=== PATIENT | female | born 1940 | race Caucasian/White ===

== ENCOUNTER 2018-05-13 15:14 | Inpatient (IN) ==
[2018-05-13 16:31] LABS: Basophils % 0.2 % (0.0-0.8); Eosinophils % 0.2 % (0.00-10.9); Hematocrit 33.3 VOL% (35.7-47.0); Hemoglobin 10.6 GM/DL (12.0-16.0); Immature Granulocytes Absolute 0.19 #; Lymphocytes # 0.9 10*3/uL (1.4-4.0); Lymphocytes % 4.6 % (21.3-54.2); Mean Corpuscular HGB Conc 31.8 GM/DL (32-36); Mean Corpuscular Hemoglobin 26 PG (27-34); Mean Corpuscular Volume 80.2 FL (87-102); Mean Platelet Volume 9.5 FL (9.6-12.0); Monocytes # 1.5 10*3/uL (0.11-0.8); Monocytes % 7.8 % (1.7-12.7); Neutrophils # 16.7 10*3/uL (1.4-7.4); Neutrophils % 86.2 % (38.7-73.9); Platelet Count 382 T/CUMM (130-400); Red Blood Count 4.15 MC/CUMM (3.8-5.5); Red Cell Distribution Width 17.1 % (9.3-17.3); White Blood Count 19.3 T/CUMM (4-12)
[2018-05-13 16:38] LABS: INR 1.1; PT Patient Result 12.3 SECS
[2018-05-13 16:48] LABS: Apearance,Urine Slightly Hazy (Clear); Bilirubin,Urine Negative (Negative); Blood, Urine Negative (Negative); Glucose,Urine (UA) Negative (Negative); Hyaline Casts,Urine 9 /LPF (0-3); Ketones,Urine Negative (Negative); Mucus,Urine Occasional /LPF (Occasional); Nitrite,Urine Negative (Negative); Protein,Urine Negative; RBC,Urine <1 /HPF (0-4); Squamous Epithelial Cell,Urine Occasional /HPF (0-10); Urine Color Yellow (Yellow); Urine Specific Gravity 1.009 (1.001-1.035); Urine Urobilinogen < 2.0 EU/DL (0.2-1.0); WBC,Urine 3 /HPF (0-6)
[2018-05-13 16:53] LABS: Lymphocytes 1 % (20-55); Segmented Neutrophils 94 % (50-85); Total Cells Counted 100
[2018-05-13 16:54] LABS: Burr Cells Few; Elliptocytes Few; Schistocytes Few
[2018-05-13 16:55] LABS: Platelet Estimate Adequate
[2018-05-13 17:33] LABS: Sedimentation Rate-Westergren 66 MM/HR (0-30)
[2018-05-13] MEDS ORDERED: ALBUTEROL/IPRATROPIUM 3 ML NEB RESP TX STA (18:22)
[2018-05-13] MEDS ORDERED: FUROSEMIDE 40 MG/4 ML VIAL IV STA (18:22)
[2018-05-13 18:39] LABS: Alanine Aminotransferase 40 U/L (13-56); Albumin 2.9 G/DL (3.4-5.0); Alkaline Phosphatase 65 U/L (45-117); Amylase 35 U/L (25-115); Aspartate Amino Transferase 47 U/L (0-37); Blood Urea Nitrogen 18 MG/DL (7-18); Calcium 8.3 MG/DL (8.5-10.1); Free T4 (Free Thyroxine) 1.24 NG/DL (0.76-1.46); Glucose 119 MG/DL (74-106); Osmolality,Calculated 264.7 MOS/KG (273-304); Potassium 4.5 MMOL/L (3.5-5.1); Sodium 131 MMOL/L (136-145); Total Protein 7.1 G/DL (6.4-8.3)
[2018-05-13 18:40] LABS: Troponin I 0.075 NG/ML (0.00-0.045)
[2018-05-13 18:51] LABS: Rheumatoid Factor 18 IU/ML (<15)
[2018-05-13] MEDS ORDERED: LEVOFLOXACIN INJ 750 MG in PREMIX 1 EACH IV STA (19:19)
[2018-05-13] MEDS ORDERED: ZALEPLON 5 MG CAPSULE PO PRN (20:03)
[2018-05-13] MEDS ORDERED: ONDANSETRON 4 MG/2 ML VIAL IV PRN (20:03)
[2018-05-13] MEDS ORDERED: ACETAMINOPHEN 325 MG TABLET PO PRN (20:03)
[2018-05-13] MEDS ORDERED: guaiFENesin/DM ER 600-30 MG TABLET PO PRN (20:03)
[2018-05-13] MEDS ORDERED: DOCUSATE SODIUM 100 MG CAPSULE PO PRN (20:03)
[2018-05-13] MEDS ORDERED: LOSARTAN 50 MG TABLET PO PRN (20:10)
[2018-05-13] MEDS ORDERED: ENOXAPARIN 40 MG/0.4 ML SYRINGE SUBCUT SCH (20:30)
[2018-05-13] MEDS ORDERED: NON-FORMULARY MEDICATION (Fluticasone Propionate [Flovent 250 Mcg Diskus] 250 MCG) INH SCH (21:00)
[2018-05-13] MEDS: busPIRone 15 MG TABLET PO SCH (22:11)
[2018-05-13] MEDS: APIXABAN 5 MG TABLET PO SCH (22:12)
[2018-05-13] MEDS: FAMCICLOVIR 250 MG TABLET PO SCH (22:12)
[2018-05-13 22:30] LABS: Troponin I 0.088 NG/ML (0.00-0.045)
[2018-05-13] MEDS: PIPERACILLIN/TAZOBACTAM 3,375 MG in SODIUM CHLORIDE 0.9% 100 ML IV SCH (23:31)
[2018-05-13] MEDS: SODIUM CHLORIDE 0.45% 1,000 ML IV SCH (23:36)
[2018-05-14] MEDS: BUDESONIDE/FORMOTEROL 160-4.5 INHALER 6 GM INH SCH ×2 (00:28→08:36)
[2018-05-14 05:01] LABS: Basophils % 0.2 % (0.0-0.8); Eosinophils % 0.1 % (0.00-10.9); Hematocrit 27.9 VOL% (35.7-47.0); Hemoglobin 8.8 GM/DL (12.0-16.0); Immature Granulocytes Absolute 0.17 #; Lymphocytes # 1.2 10*3/uL (1.4-4.0); Mean Corpuscular HGB Conc 31.5 GM/DL (32-36); Mean Corpuscular Hemoglobin 25 PG (27-34); Mean Corpuscular Volume 78.4 FL (87-102); Mean Platelet Volume 9.9 FL (9.6-12.0); Monocytes # 1.3 10*3/uL (0.11-0.8); Monocytes % 7.7 % (1.7-12.7); Neutrophils # 14.5 10*3/uL (1.4-7.4); Platelet Count 330 T/CUMM (130-400); Red Blood Count 3.56 MC/CUMM (3.8-5.5); Red Cell Distribution Width 16.9 % (9.3-17.3); White Blood Count 17.2 T/CUMM (4-12)
[2018-05-14 05:06] LABS: Calcium 7.9 MG/DL (8.5-10.1); Osmolality,Calculated 270.2 MOS/KG (273-304)
[2018-05-14 05:08] LABS: Troponin I 0.107 NG/ML (0.00-0.045)
[2018-05-14] MEDS: ATORVASTATIN 40 MG TABLET PO SCH (08:30)
[2018-05-14] MEDS: ASPIRIN EC 81 MG TABLET PO SCH (08:31)
[2018-05-14] MEDS: AMIODARONE 200 MG TABLET PO SCH (08:31)
[2018-05-14] MEDS: APIXABAN 5 MG TABLET PO SCH ×2 (08:31→21:16)
[2018-05-14] MEDS: LEVOTHYROXINE 50 MCG TABLET PO SCH (08:31)
[2018-05-14] MEDS: busPIRone 15 MG TABLET PO SCH (08:32)
[2018-05-14] MEDS: FAMCICLOVIR 250 MG TABLET PO SCH ×2 (08:32→21:16)
[2018-05-14] MEDS: PANTOPRAZOLE 40 MG TABLET PO SCH (08:32)
[2018-05-14] MEDS: PIPERACILLIN/TAZOBACTAM 3,375 MG in SODIUM CHLORIDE 0.9% 100 ML IV SCH ×2 (08:33→16:54)
[2018-05-14] MEDS ORDERED: PANTOPRAZOLE 40 MG TABLET PO SCH (09:00)
[2018-05-14] MEDS ORDERED: FLUCONAZOLE 100 MG TABLET PO SCH (09:00)
[2018-05-14] MEDS ORDERED: predniSONE 5 MG TABLET PO SCH (09:00)
[2018-05-14] MEDS ORDERED: NON-FORMULARY MEDICATION (Omeprazole [Omeprazole] 20 MG) PO SCH (09:00)
[2018-05-14] MEDS ORDERED: MULTIVITAMIN (CENTRUM) TABLET PO SCH (09:00)
[2018-05-14] MEDS ORDERED: NON-FORMULARY MEDICATION (Garlic [Garlic] 1,000 MG) PO SCH (09:00)
[2018-05-14] MEDS ORDERED: EZETIMIBE 10 MG TABLET PO SCH (09:00)
[2018-05-14] MEDS ORDERED: amLODIPine 5 MG TABLET PO SCH (09:00)
[2018-05-14] MEDS: SODIUM CHLORIDE 0.45% 1,000 ML IV SCH (09:33)
[2018-05-14] MEDS ORDERED: guaiFENesin/DM ER 600-30 MG TABLET PO SCH (10:30)
[2018-05-14] MEDS: ALBUTEROL 2.5 MG/3 ML NEB RESP TX PRN (11:39)
[2018-05-14 11:40] LABS: ABG Base Excess 0.4 MMOL/L (-2.5-2.5); ABG HCO3 24.6 MMOL/L (20-26); ABG Oxygen Saturation 85.1 % (95-100); ABG TCO2 22.3 MMOL/L (23-27); Allen Test Positive
[2018-05-14] MEDS ORDERED: FUROSEMIDE 40 MG/4 ML VIAL IV ONE (11:57)
[2018-05-14 12:53] LABS: Troponin I 0.077 NG/ML (0.00-0.045)
[2018-05-14] MEDS: ALBUTEROL/IPRATROPIUM 3 ML NEB RESP TX SCH ×2 (14:30→19:53)
[2018-05-14] MEDS: FUROSEMIDE 40 MG/4 ML VIAL IV SCH (16:40)
[2018-05-14] MEDS: methylPREDNISolone SOD SUC 40 MG/1 ML VIAL IV SCH (16:54)
[2018-05-15] MEDS: methylPREDNISolone SOD SUC 40 MG/1 ML VIAL IV SCH ×3 (00:16→17:43)
[2018-05-15] MEDS: PIPERACILLIN/TAZOBACTAM 3,375 MG in SODIUM CHLORIDE 0.9% 100 ML IV SCH ×3 (00:34→17:43)
[2018-05-15] MEDS: ALBUTEROL/IPRATROPIUM 3 ML NEB RESP TX SCH ×7 (00:36→23:23)
[2018-05-15 03:45] LABS: Basophils % 0.1 % (0.0-0.8); Hematocrit 29.9 VOL% (35.7-47.0); Hemoglobin 9.4 GM/DL (12.0-16.0); Immature Granulocytes % 0.6 %; Immature Granulocytes Absolute 0.11 #; Lymphocytes # 0.4 10*3/uL (1.4-4.0); Lymphocytes % 2.3 % (21.3-54.2); Mean Corpuscular HGB Conc 31.4 GM/DL (32-36); Mean Corpuscular Hemoglobin 25 PG (27-34); Mean Corpuscular Volume 78.7 FL (87-102); Mean Platelet Volume 9.9 FL (9.6-12.0); Monocytes # 0.3 10*3/uL (0.11-0.8); Monocytes % 1.9 % (1.7-12.7); Neutrophils # 16.6 10*3/uL (1.4-7.4); Neutrophils % 95.1 % (38.7-73.9); Platelet Count 355 T/CUMM (130-400); Red Cell Distribution Width 16.6 % (9.3-17.3); White Blood Count 17.5 T/CUMM (4-12)
[2018-05-15 03:59] LABS: Calcium 8.1 MG/DL (8.5-10.1); Osmolality,Calculated 275.1 MOS/KG (273-304); Potassium 3.8 MMOL/L (3.5-5.1)
[2018-05-15 04:22] LABS: Lymphocytes 2 % (20-55); Platelet Estimate Adequate; Segmented Neutrophils 96 % (50-85); Total Cells Counted 100
[2018-05-15 04:23] LABS: Burr Cells Slight; Elliptocytes Few; Hypochromasia 1+
[2018-05-15] MEDS: LEVOTHYROXINE 50 MCG TABLET PO SCH (06:16)
[2018-05-15] MEDS: FUROSEMIDE 40 MG/4 ML VIAL IV SCH ×2 (09:09→16:45)
[2018-05-15] MEDS: APIXABAN 5 MG TABLET PO SCH ×2 (09:10→21:08)
[2018-05-15] MEDS: AMIODARONE 200 MG TABLET PO SCH (09:10)
[2018-05-15] MEDS: FAMCICLOVIR 250 MG TABLET PO SCH ×2 (09:11→21:08)
[2018-05-15] MEDS: ASPIRIN EC 81 MG TABLET PO SCH (09:12)
[2018-05-15] MEDS: PANTOPRAZOLE 40 MG TABLET PO SCH (09:12)
[2018-05-15] MEDS: ATORVASTATIN 40 MG TABLET PO SCH (09:12)
[2018-05-15] MEDS ORDERED: LEVOFLOXACIN INJ 750 MG in PREMIX 1 EACH IV SCH (21:00)
[2018-05-16] MEDS: methylPREDNISolone SOD SUC 40 MG/1 ML VIAL IV SCH ×3 (00:26→17:24)
[2018-05-16] MEDS: PIPERACILLIN/TAZOBACTAM 3,375 MG in SODIUM CHLORIDE 0.9% 100 ML IV SCH ×3 (00:26→17:39)
[2018-05-16] MEDS: ALBUTEROL/IPRATROPIUM 3 ML NEB RESP TX SCH ×5 (03:49→19:15)
[2018-05-16] MEDS: LEVOTHYROXINE 50 MCG TABLET PO SCH (06:10)
[2018-05-16 07:51] LABS: Basophils % 0.1 % (0.0-0.8); Hematocrit 30.6 VOL% (35.7-47.0); Hemoglobin 9.8 GM/DL (12.0-16.0); Immature Granulocytes Absolute 0.24 #; Lymphocytes # 0.3 10*3/uL (1.4-4.0); Lymphocytes % 1.3 % (21.3-54.2); Mean Corpuscular Hemoglobin 25 PG (27-34); Mean Corpuscular Volume 78.1 FL (87-102); Mean Platelet Volume 9.7 FL (9.6-12.0); Monocytes # 0.6 10*3/uL (0.11-0.8); Monocytes % 2.7 % (1.7-12.7); Neutrophils # 21.8 10*3/uL (1.4-7.4); Neutrophils % 94.9 % (38.7-73.9); Platelet Count 407 T/CUMM (130-400); Red Blood Count 3.92 MC/CUMM (3.8-5.5); Red Cell Distribution Width 16.7 % (9.3-17.3)
[2018-05-16] MEDS: FUROSEMIDE 40 MG/4 ML VIAL IV SCH ×2 (08:01→17:37)
[2018-05-16 08:08] LABS: Elliptocytes Few; Hypochromasia 1+; Platelet Estimate Adequate; Segmented Neutrophils 98 % (50-85); Total Cells Counted 100
[2018-05-16 08:14] LABS: Calcium 8.4 MG/DL (8.5-10.1); Osmolality,Calculated 285.8 MOS/KG (273-304); Potassium 3.1 MMOL/L (3.5-5.1)
[2018-05-16] MEDS: FAMCICLOVIR 250 MG TABLET PO SCH ×2 (09:28→22:16)
[2018-05-16] MEDS: APIXABAN 5 MG TABLET PO SCH ×2 (09:28→22:16)
[2018-05-16] MEDS: ATORVASTATIN 40 MG TABLET PO SCH (09:29)
[2018-05-16] MEDS: PANTOPRAZOLE 40 MG TABLET PO SCH (09:29)
[2018-05-16] MEDS: ASPIRIN EC 81 MG TABLET PO SCH (09:29)
[2018-05-16] MEDS ORDERED: VANCOMYCIN INJ 1,250 MG in SODIUM CHLORIDE 0.9% 250 ML IV ONE (09:30)
[2018-05-16] MEDS: AMIODARONE 200 MG TABLET PO SCH (11:15)
[2018-05-16] MEDS ORDERED: VANCOMYCIN INJ 1,250 MG in SODIUM CHLORIDE 0.9% 250 ML IV PRN (12:45)
[2018-05-16 14:57] LABS: ABG Base Excess 4.5 MMOL/L (-2.5-2.5); ABG HCO3 28.5 MMOL/L (20-26); ABG Oxygen Saturation 97.2 % (95-100); ABG PCO2 41.7 MM HG (35-48); ABG PH 7.449 (7.35-7.45); ABG PO2 92.6 MM HG (80-95); ABG TCO2 26.2 MMOL/L (23-27); Allen Test Positive; Pt O2 Delivery Device Other
[2018-05-16] MEDS: DRONEDARONE 400 MG TABLET PO SCH (17:24)
[2018-05-16] MEDS ORDERED: FUROSEMIDE 40 MG/4 ML VIAL IV SCH (18:28)
[2018-05-16] MEDS: POTASSIUM CHLORIDE 20 MEQ/15 ML UDCUP PER TUBE PRN (22:16)
[2018-05-17] MEDS: POTASSIUM CHLORIDE 20 MEQ/15 ML UDCUP PER TUBE PRN (00:05)
[2018-05-17] MEDS: ALBUTEROL/IPRATROPIUM 3 ML NEB RESP TX SCH ×7 (00:10→23:33)
[2018-05-17] MEDS: methylPREDNISolone SOD SUC 40 MG/1 ML VIAL IV SCH ×3 (00:30→17:19)
[2018-05-17] MEDS: PIPERACILLIN/TAZOBACTAM 3,375 MG in SODIUM CHLORIDE 0.9% 100 ML IV SCH ×3 (01:02→17:21)
[2018-05-17 04:21] LABS: Hematocrit 28.5 VOL% (35.7-47.0); Hemoglobin 9.2 GM/DL (12.0-16.0); Immature Granulocytes % 0.6 %; Immature Granulocytes Absolute 0.14 #; Lymphocytes # 0.4 10*3/uL (1.4-4.0); Lymphocytes % 1.7 % (21.3-54.2); Mean Corpuscular HGB Conc 32.3 GM/DL (32-36); Mean Corpuscular Hemoglobin 25 PG (27-34); Mean Corpuscular Volume 78.7 FL (87-102); Mean Platelet Volume 9.8 FL (9.6-12.0); Monocytes # 0.8 10*3/uL (0.11-0.8); Monocytes % 3.6 % (1.7-12.7); Neutrophils # 20.4 10*3/uL (1.4-7.4); Neutrophils % 94.1 % (38.7-73.9); Platelet Count 408 T/CUMM (130-400); Red Blood Count 3.62 MC/CUMM (3.8-5.5); Red Cell Distribution Width 16.6 % (9.3-17.3); White Blood Count 21.7 T/CUMM (4-12)
[2018-05-17 04:33] LABS: Calcium 8.4 MG/DL (8.5-10.1); Potassium 4.2 MMOL/L (3.5-5.1)
[2018-05-17 05:11] LABS: Band Neutrophils 2 % (0-10); Lymphocytes 3 % (20-55); Platelet Estimate Normal; Segmented Neutrophils 93 % (50-85); Total Cells Counted 100
[2018-05-17 05:12] LABS: Acanthocytes 2+; Anisocytosis 2+; Elliptocytes Few; Macrocytosis Slight; Microcytosis 2+; Ovalocytes Few; Polychromasia Few
[2018-05-17] MEDS: LEVOTHYROXINE 50 MCG TABLET PO SCH (06:17)
[2018-05-17] MEDS: ASPIRIN EC 81 MG TABLET PO SCH (09:16)
[2018-05-17] MEDS: DRONEDARONE 400 MG TABLET PO SCH ×2 (09:16→17:25)
[2018-05-17] MEDS: PANTOPRAZOLE 40 MG TABLET PO SCH (09:16)
[2018-05-17] MEDS: APIXABAN 5 MG TABLET PO SCH ×2 (09:16→21:16)
[2018-05-17] MEDS: ATORVASTATIN 40 MG TABLET PO SCH (09:16)
[2018-05-17] MEDS: FAMCICLOVIR 250 MG TABLET PO SCH ×2 (09:16→21:16)
[2018-05-17] MEDS: FUROSEMIDE 40 MG/4 ML VIAL IV SCH (09:18)
[2018-05-17] MEDS ORDERED: MIDAZOLAM 2 MG/2 ML VIAL IV ONE ×2 (13:00→13:07)
[2018-05-17] MEDS ORDERED: LIDOCAINE 2% 20 ML VIAL RESP TX ONE (13:00)
[2018-05-17] MEDS ORDERED: LIDOCAINE 2% VISCOUS 100 ML BOTTLE SWISH/SPIT ONE (13:00)
[2018-05-17] MEDS ORDERED: LIDOCAINE 1% 20 ML VIAL MISC INJ ONE (13:00)
[2018-05-17] MEDS: MIDAZOLAM 2 MG/2 ML VIAL IV ONE ×2 (13:03→14:14)
[2018-05-17] MEDS ORDERED: VANCOMYCIN INJ 1,250 MG in SODIUM CHLORIDE 0.9% 250 ML IV ONE (13:30)
[2018-05-17] MEDS: DICLOFENAC 1% GEL 100 GM TUBE TOP SCH ×2 (17:35→21:18)
[2018-05-18] MEDS: methylPREDNISolone SOD SUC 40 MG/1 ML VIAL IV SCH ×3 (00:35→17:00)
[2018-05-18] MEDS: PIPERACILLIN/TAZOBACTAM 3,375 MG in SODIUM CHLORIDE 0.9% 100 ML IV SCH ×3 (01:52→17:00)
[2018-05-18] MEDS: ALBUTEROL/IPRATROPIUM 3 ML NEB RESP TX SCH ×6 (02:14→23:18)
[2018-05-18 04:13] LABS: Hematocrit 30.8 VOL% (35.7-47.0); Hemoglobin 9.5 GM/DL (12.0-16.0); Immature Granulocytes % 0.8 %; Immature Granulocytes Absolute 0.11 #; Lymphocytes # 0.4 10*3/uL (1.4-4.0); Lymphocytes % 2.8 % (21.3-54.2); Mean Corpuscular HGB Conc 30.8 GM/DL (32-36); Mean Corpuscular Hemoglobin 25 PG (27-34); Mean Corpuscular Volume 79.8 FL (87-102); Mean Platelet Volume 9.7 FL (9.6-12.0); Monocytes # 0.4 10*3/uL (0.11-0.8); Monocytes % 2.8 % (1.7-12.7); Neutrophils # 12.5 10*3/uL (1.4-7.4); Neutrophils % 93.6 % (38.7-73.9); Platelet Count 401 T/CUMM (130-400); Red Blood Count 3.86 MC/CUMM (3.8-5.5); Red Cell Distribution Width 16.7 % (9.3-17.3); White Blood Count 13.4 T/CUMM (4-12)
[2018-05-18 04:49] LABS: Calcium 8.3 MG/DL (8.5-10.1); Osmolality,Calculated 291.7 MOS/KG (273-304); Potassium 3.8 MMOL/L (3.5-5.1)
[2018-05-18 05:38] LABS: Lymphocytes 3 % (20-55); Platelet Estimate Increased; Segmented Neutrophils 93 % (50-85); Total Cells Counted 100
[2018-05-18] MEDS: POTASSIUM CHLORIDE 20 MEQ/15 ML UDCUP PER TUBE PRN (08:05)
[2018-05-18] MEDS: LEVOTHYROXINE 50 MCG TABLET PO SCH (08:05)
[2018-05-18] MEDS: ASPIRIN EC 81 MG TABLET PO SCH (08:15)
[2018-05-18] MEDS: APIXABAN 5 MG TABLET PO SCH ×2 (08:15→21:17)
[2018-05-18] MEDS: ATORVASTATIN 40 MG TABLET PO SCH (08:16)
[2018-05-18] MEDS: PANTOPRAZOLE 40 MG TABLET PO SCH (08:16)
[2018-05-18] MEDS: DICLOFENAC 1% GEL 100 GM TUBE TOP SCH ×4 (08:16→21:32)
[2018-05-18] MEDS: FUROSEMIDE 40 MG/4 ML VIAL IV SCH (08:16)
[2018-05-18] MEDS: DRONEDARONE 400 MG TABLET PO SCH ×2 (08:19→17:33)
[2018-05-18] MEDS ORDERED: VANCOMYCIN INJ 1,250 MG in SODIUM CHLORIDE 0.9% 250 ML IV ONE (20:00)
[2018-05-18] MEDS: ZINC OXIDE PASTE 113 GM TUBE TOP SCH (21:17)
[2018-05-19] MEDS: methylPREDNISolone SOD SUC 40 MG/1 ML VIAL IV SCH ×3 (00:34→17:00)
[2018-05-19] MEDS: PIPERACILLIN/TAZOBACTAM 3,375 MG in SODIUM CHLORIDE 0.9% 100 ML IV SCH ×3 (00:41→17:01)
[2018-05-19] MEDS: ALBUTEROL/IPRATROPIUM 3 ML NEB RESP TX SCH ×5 (02:18→19:32)
[2018-05-19 07:00] LABS: Basophils % 0.1 % (0.0-0.8); Hematocrit 29.9 VOL% (35.7-47.0); Hemoglobin 9.3 GM/DL (12.0-16.0); Immature Granulocytes % 0.8 %; Immature Granulocytes Absolute 0.11 #; Lymphocytes # 0.3 10*3/uL (1.4-4.0); Lymphocytes % 2.1 % (21.3-54.2); Mean Corpuscular HGB Conc 31.1 GM/DL (32-36); Mean Corpuscular Hemoglobin 25 PG (27-34); Mean Corpuscular Volume 78.9 FL (87-102); Mean Platelet Volume 9.8 FL (9.6-12.0); Monocytes # 0.4 10*3/uL (0.11-0.8); Monocytes % 3.3 % (1.7-12.7); Neutrophils # 12.3 10*3/uL (1.4-7.4); Neutrophils % 93.7 % (38.7-73.9); Platelet Count 350 T/CUMM (130-400); Red Blood Count 3.79 MC/CUMM (3.8-5.5); Red Cell Distribution Width 16.3 % (9.3-17.3); White Blood Count 13.1 T/CUMM (4-12)
[2018-05-19] MEDS: LEVOTHYROXINE 50 MCG TABLET PO SCH (07:04)
[2018-05-19 07:16] LABS: Calcium 8.3 MG/DL (8.5-10.1); Osmolality,Calculated 294.7 MOS/KG (273-304); Potassium 3.7 MMOL/L (3.5-5.1)
[2018-05-19 07:43] LABS: Band Neutrophils 3 % (0-10); Lymphocytes 2 % (20-55); Platelet Estimate Normal; Segmented Neutrophils 93 % (50-85); Total Cells Counted 100
[2018-05-19 07:44] LABS: Anisocytosis 1+; Poikilocytosis 1+
[2018-05-19] MEDS: APIXABAN 5 MG TABLET PO SCH ×2 (08:08→20:39)
[2018-05-19] MEDS: ASPIRIN EC 81 MG TABLET PO SCH (08:08)
[2018-05-19] MEDS: DRONEDARONE 400 MG TABLET PO SCH ×2 (08:08→17:05)
[2018-05-19] MEDS: FUROSEMIDE 40 MG/4 ML VIAL IV SCH (08:08)
[2018-05-19] MEDS: PANTOPRAZOLE 40 MG TABLET PO SCH (08:08)
[2018-05-19] MEDS: ATORVASTATIN 40 MG TABLET PO SCH (08:08)
[2018-05-19] MEDS: ZINC OXIDE PASTE 113 GM TUBE TOP SCH ×2 (08:09→20:38)
[2018-05-19] MEDS: DICLOFENAC 1% GEL 100 GM TUBE TOP SCH ×4 (09:55→20:40)
[2018-05-19] MEDS: LOPERAMIDE 2 MG CAPSULE PO PRN (10:22)
[2018-05-19] MEDS ORDERED: VANCOMYCIN INJ 1,250 MG in SODIUM CHLORIDE 0.9% 250 ML IV ONE (22:00)
[2018-05-20] MEDS: ALBUTEROL/IPRATROPIUM 3 ML NEB RESP TX SCH ×7 (00:17→23:23)
[2018-05-20] MEDS: methylPREDNISolone SOD SUC 40 MG/1 ML VIAL IV SCH ×4 (00:32→23:47)
[2018-05-20] MEDS: PIPERACILLIN/TAZOBACTAM 3,375 MG in SODIUM CHLORIDE 0.9% 100 ML IV SCH ×3 (00:36→16:29)
[2018-05-20] MEDS: LEVOTHYROXINE 50 MCG TABLET PO SCH (08:16)
[2018-05-20] MEDS: PANTOPRAZOLE 40 MG TABLET PO SCH (08:16)
[2018-05-20] MEDS: ATORVASTATIN 40 MG TABLET PO SCH (08:16)
[2018-05-20] MEDS: DRONEDARONE 400 MG TABLET PO SCH ×2 (08:16→16:29)
[2018-05-20] MEDS: APIXABAN 5 MG TABLET PO SCH ×2 (08:16→21:23)
[2018-05-20] MEDS: FUROSEMIDE 40 MG/4 ML VIAL IV SCH (08:16)
[2018-05-20] MEDS: ASPIRIN EC 81 MG TABLET PO SCH (08:16)
[2018-05-20] MEDS: ZINC OXIDE PASTE 113 GM TUBE TOP SCH ×2 (08:48→21:23)
[2018-05-20] MEDS: DICLOFENAC 1% GEL 100 GM TUBE TOP SCH ×4 (08:48→21:23)
[2018-05-20 11:05] LABS: ABG Base Excess 3.5 MMOL/L (-2.5-2.5); ABG Oxygen Saturation 59.8 % (95-100); ABG PCO2 39.4 MM HG (35-48); ABG PH 7.454 (7.35-7.45); ABG TCO2 25.7 MMOL/L (23-27)
[2018-05-20 11:07] LABS: ABG PO2 32.8 MM HG (80-95)
[2018-05-20 11:17] LABS: Basophils % 0.1 % (0.0-0.8); Hematocrit 27.9 VOL% (35.7-47.0); Hemoglobin 8.7 GM/DL (12.0-16.0); Immature Granulocytes Absolute 0.25 #; Lymphocytes # 0.2 10*3/uL (1.4-4.0); Lymphocytes % 0.8 % (21.3-54.2); Mean Corpuscular HGB Conc 31.2 GM/DL (32-36); Mean Corpuscular Hemoglobin 25 PG (27-34); Mean Corpuscular Volume 79.9 FL (87-102); Mean Platelet Volume 9.5 FL (9.6-12.0); Monocytes # 0.8 10*3/uL (0.11-0.8); Monocytes % 3.2 % (1.7-12.7); Neutrophils # 22.6 10*3/uL (1.4-7.4); Neutrophils % 94.9 % (38.7-73.9); Platelet Count 371 T/CUMM (130-400); Red Blood Count 3.49 MC/CUMM (3.8-5.5); Red Cell Distribution Width 16.5 % (9.3-17.3); White Blood Count 23.8 T/CUMM (4-12)
[2018-05-20] MEDS ORDERED: FUROSEMIDE 40 MG/4 ML VIAL IV ONE (11:22)
[2018-05-20 11:36] LABS: Calcium 8.3 MG/DL (8.5-10.1); Osmolality,Calculated 294.5 MOS/KG (273-304); Potassium 3.5 MMOL/L (3.5-5.1)
[2018-05-20] MEDS ORDERED: POTASSIUM CHLORIDE 20 MEQ TABLET PO ONE (11:38)
[2018-05-20 11:57] LABS: ABG Base Excess 4.4 MMOL/L (-2.5-2.5); ABG HCO3 28.4 MMOL/L (20-26); ABG Oxygen Saturation 97.7 % (95-100); ABG PCO2 44.6 MM HG (35-48); ABG PH 7.425 (7.35-7.45); ABG TCO2 27.1 MMOL/L (23-27)
[2018-05-20] MEDS: AZITHROMYCIN INJ 500 MG in SODIUM CHLORIDE 0.9% 250 ML IV SCH (12:00)
[2018-05-20 12:01] LABS: Lymphocytes 1 % (20-55); Segmented Neutrophils 99 % (50-85); Total Cells Counted 100
[2018-05-20 12:01] LABS: Troponin I 0.041 NG/ML (0.00-0.045)
[2018-05-20 12:02] LABS: Hypochromasia 1+; Microcytosis 1+; Platelet Satellitism Few
[2018-05-20 12:03] LABS: Ovalocytes Few
[2018-05-20 13:00] LABS: Apearance,Urine CLEAR (Clear); Bilirubin,Urine Negative (Negative); Blood, Urine Large mg/dL (Negative); Glucose,Urine (UA) Negative (Negative); Hyaline Casts,Urine 8 /LPF (0-3); Ketones,Urine Negative (Negative); Nitrite,Urine Negative (Negative); Protein,Urine Negative; RBC,Urine 45 /HPF (0-4); Urine Color Straw (Yellow); Urine Specific Gravity 1.009 (1.001-1.035); Urine Urobilinogen < 2.0 EU/DL (0.2-1.0); WBC,Urine <1 /HPF (0-6)
[2018-05-20] MEDS: ACETYLCYSTEINE 20% 800 MG/4 ML VIAL RESP TX SCH ×2 (14:35→23:23)
[2018-05-20] MEDS ORDERED: VANCOMYCIN INJ 1,250 MG in SODIUM CHLORIDE 0.9% 250 ML IV ONE (23:00)
[2018-05-21] MEDS: PIPERACILLIN/TAZOBACTAM 3,375 MG in SODIUM CHLORIDE 0.9% 100 ML IV SCH ×2 (00:59→08:35)
[2018-05-21] MEDS: ALBUTEROL/IPRATROPIUM 3 ML NEB RESP TX SCH ×6 (02:43→22:41)
[2018-05-21 05:54] LABS: Basophils % 0.1 % (0.0-0.8); Hematocrit 25.8 VOL% (35.7-47.0); Hemoglobin 8.3 GM/DL (12.0-16.0); Immature Granulocytes % 1.3 %; Immature Granulocytes Absolute 0.24 #; Lymphocytes # 0.2 10*3/uL (1.4-4.0); Lymphocytes % 1.2 % (21.3-54.2); Mean Corpuscular HGB Conc 32.2 GM/DL (32-36); Mean Corpuscular Hemoglobin 26 PG (27-34); Mean Corpuscular Volume 79.4 FL (87-102); Mean Platelet Volume 9.7 FL (9.6-12.0); Monocytes # 0.5 10*3/uL (0.11-0.8); Monocytes % 2.9 % (1.7-12.7); Neutrophils # 17.5 10*3/uL (1.4-7.4); Neutrophils % 94.5 % (38.7-73.9); Platelet Count 337 T/CUMM (130-400); Red Blood Count 3.25 MC/CUMM (3.8-5.5); Red Cell Distribution Width 16.4 % (9.3-17.3); White Blood Count 18.5 T/CUMM (4-12)
[2018-05-21 06:02] LABS: Calcium 8.3 MG/DL (8.5-10.1); Osmolality,Calculated 291.5 MOS/KG (273-304); Potassium 3.7 MMOL/L (3.5-5.1)
[2018-05-21 06:15] LABS: Band Neutrophils 1 % (0-10); Hypochromasia 1+; Microcytosis Slight; Ovalocytes Slight; Platelet Estimate Adequate; Segmented Neutrophils 97 % (50-85); Total Cells Counted 100
[2018-05-21] MEDS: LEVOTHYROXINE 50 MCG TABLET PO SCH (06:15)
[2018-05-21] MEDS: ACETYLCYSTEINE 20% 800 MG/4 ML VIAL RESP TX SCH ×3 (07:15→22:42)
[2018-05-21] MEDS: methylPREDNISolone SOD SUC 40 MG/1 ML VIAL IV SCH ×3 (07:45→18:45)
[2018-05-21] MEDS: DRONEDARONE 400 MG TABLET PO SCH ×2 (08:20→17:10)
[2018-05-21] MEDS: ASPIRIN EC 81 MG TABLET PO SCH (08:20)
[2018-05-21] MEDS: PANTOPRAZOLE 40 MG TABLET PO SCH (08:20)
[2018-05-21] MEDS: APIXABAN 5 MG TABLET PO SCH ×2 (08:20→22:00)
[2018-05-21] MEDS: ATORVASTATIN 40 MG TABLET PO SCH (08:20)
[2018-05-21] MEDS: FUROSEMIDE 40 MG/4 ML VIAL IV SCH (08:30)
[2018-05-21] MEDS: ZINC OXIDE PASTE 113 GM TUBE TOP SCH ×2 (09:30→22:01)
[2018-05-21] MEDS: DICLOFENAC 1% GEL 100 GM TUBE TOP SCH ×4 (09:30→22:01)
[2018-05-21] MEDS: AZITHROMYCIN INJ 500 MG in SODIUM CHLORIDE 0.9% 250 ML IV SCH (11:30)
[2018-05-21 11:48] LABS: % Iron Saturation 26.4 % (18-50); Ferritin 502.5 ng/ml (8-252)
[2018-05-21] MEDS: LOPERAMIDE 2 MG CAPSULE PO PRN (16:10)
[2018-05-21] MEDS: VANCOMYCIN INJ 1,000 MG in SODIUM CHLORIDE 0.9% 250 ML IV SCH (23:05)
[2018-05-22] MEDS: methylPREDNISolone SOD SUC 40 MG/1 ML VIAL IV SCH ×4 (00:08→18:35)
[2018-05-22] MEDS: ALBUTEROL/IPRATROPIUM 3 ML NEB RESP TX SCH ×5 (02:29→19:21)
[2018-05-22 05:54] LABS: Basophils % 0.1 % (0.0-0.8); Hematocrit 25.8 VOL% (35.7-47.0); Immature Granulocytes % 1.6 %; Immature Granulocytes Absolute 0.29 #; Lymphocytes # 0.2 10*3/uL (1.4-4.0); Lymphocytes % 1.2 % (21.3-54.2); Mean Corpuscular Hemoglobin 25 PG (27-34); Mean Corpuscular Volume 79.9 FL (87-102); Mean Platelet Volume 10.2 FL (9.6-12.0); Monocytes # 0.6 10*3/uL (0.11-0.8); Neutrophils # 17.3 10*3/uL (1.4-7.4); Neutrophils % 94.1 % (38.7-73.9); Platelet Count 413 T/CUMM (130-400); Red Blood Count 3.23 MC/CUMM (3.8-5.5); Red Cell Distribution Width 16.5 % (9.3-17.3); White Blood Count 18.4 T/CUMM (4-12)
[2018-05-22 06:15] LABS: Elliptocytes Few; Hypochromasia 1+; Lymphocytes 1 % (20-55); Microcytosis Slight; Platelet Estimate Adequate; Segmented Neutrophils 97 % (50-85); Total Cells Counted 100
[2018-05-22] MEDS: LEVOTHYROXINE 50 MCG TABLET PO SCH (06:27)
[2018-05-22 06:32] LABS: Calcium 8.3 MG/DL (8.5-10.1); Osmolality,Calculated 300.1 MOS/KG (273-304); Potassium 3.2 MMOL/L (3.5-5.1)
[2018-05-22] MEDS: POTASSIUM CHLORIDE 20 MEQ/15 ML UDCUP PER TUBE PRN ×3 (07:00→13:40)
[2018-05-22] MEDS: ACETYLCYSTEINE 20% 800 MG/4 ML VIAL RESP TX SCH ×2 (07:15→14:45)
[2018-05-22] MEDS: APIXABAN 5 MG TABLET PO SCH ×2 (08:37→20:16)
[2018-05-22] MEDS: ATORVASTATIN 40 MG TABLET PO SCH (08:37)
[2018-05-22] MEDS: FUROSEMIDE 40 MG/4 ML VIAL IV SCH (08:37)
[2018-05-22] MEDS: POTASSIUM CHLORIDE 20 MEQ TABLET PO SCH ×2 (08:37→20:16)
[2018-05-22] MEDS: DRONEDARONE 400 MG TABLET PO SCH ×2 (08:37→17:15)
[2018-05-22] MEDS: ASPIRIN EC 81 MG TABLET PO SCH (08:37)
[2018-05-22] MEDS: PANTOPRAZOLE 40 MG TABLET PO SCH (08:37)
[2018-05-22] MEDS: DICLOFENAC 1% GEL 100 GM TUBE TOP SCH ×4 (09:00→20:16)
[2018-05-22] MEDS: ZINC OXIDE PASTE 113 GM TUBE TOP SCH ×2 (11:30→20:17)
[2018-05-22] MEDS: AZITHROMYCIN INJ 500 MG in SODIUM CHLORIDE 0.9% 250 ML IV SCH (11:40)
[2018-05-22] MEDS: VANCOMYCIN INJ 1,000 MG in SODIUM CHLORIDE 0.9% 250 ML IV SCH (21:37)
[2018-05-23] MEDS: ALBUTEROL/IPRATROPIUM 3 ML NEB RESP TX SCH ×8 (00:15→23:26)
[2018-05-23] MEDS: ACETYLCYSTEINE 20% 800 MG/4 ML VIAL RESP TX SCH ×2 (00:15→07:17)
[2018-05-23] MEDS: methylPREDNISolone SOD SUC 40 MG/1 ML VIAL IV SCH ×4 (01:24→23:09)
[2018-05-23] MEDS: LOPERAMIDE 2 MG CAPSULE PO PRN ×2 (02:36→23:10)
[2018-05-23 05:51] LABS: Hematocrit 24.4 VOL% (35.7-47.0); Hemoglobin 7.7 GM/DL (12.0-16.0); Immature Granulocytes % 1.9 %; Immature Granulocytes Absolute 0.38 #; Lymphocytes # 0.2 10*3/uL (1.4-4.0); Lymphocytes % 0.8 % (21.3-54.2); Mean Corpuscular HGB Conc 31.6 GM/DL (32-36); Mean Corpuscular Hemoglobin 26 PG (27-34); Mean Corpuscular Volume 81.1 FL (87-102); Mean Platelet Volume 10.7 FL (9.6-12.0); Monocytes # 0.7 10*3/uL (0.11-0.8); Monocytes % 3.6 % (1.7-12.7); Neutrophils # 19.1 10*3/uL (1.4-7.4); Neutrophils % 93.7 % (38.7-73.9); Platelet Count 465 T/CUMM (130-400); Red Blood Count 3.01 MC/CUMM (3.8-5.5); White Blood Count 20.4 T/CUMM (4-12)
[2018-05-23 06:17] LABS: Calcium 8.4 MG/DL (8.5-10.1); Osmolality,Calculated 299.4 MOS/KG (273-304); Potassium 4.7 MMOL/L (3.5-5.1)
[2018-05-23 06:21] LABS: Lymphocytes 2 % (20-55); Platelet Estimate Increased; Segmented Neutrophils 97 % (50-85); Total Cells Counted 100
[2018-05-23 06:22] LABS: Hypochromasia 2+
[2018-05-23 06:23] LABS: Acanthocytes Few; Anisocytosis 1+; Elliptocytes Few; Microcytosis 1+; Ovalocytes 2+
[2018-05-23] MEDS: LEVOTHYROXINE 50 MCG TABLET PO SCH (06:35)
[2018-05-23] MEDS: DRONEDARONE 400 MG TABLET PO SCH ×2 (08:49→17:25)
[2018-05-23] MEDS: ASPIRIN EC 81 MG TABLET PO SCH (08:49)
[2018-05-23] MEDS: APIXABAN 5 MG TABLET PO SCH ×2 (08:51→21:40)
[2018-05-23] MEDS: FUROSEMIDE 40 MG/4 ML VIAL IV SCH (08:51)
[2018-05-23] MEDS: PANTOPRAZOLE 40 MG TABLET PO SCH (08:51)
[2018-05-23] MEDS: POTASSIUM CHLORIDE 20 MEQ TABLET PO SCH (08:51)
[2018-05-23] MEDS: DICLOFENAC 1% GEL 100 GM TUBE TOP SCH ×4 (08:52→21:41)
[2018-05-23] MEDS: PIPERACILLIN/TAZOBACTAM 3,375 MG in SODIUM CHLORIDE 0.9% 100 ML IV SCH ×3 (08:52→23:32)
[2018-05-23] MEDS: ZINC OXIDE PASTE 113 GM TUBE TOP SCH ×2 (08:52→21:39)
[2018-05-23] MEDS ORDERED: SODIUM CHLORIDE 0.9% 1,000 ML IV PRN ×2 (09:06→09:34)
[2018-05-23] MEDS: ATORVASTATIN 40 MG TABLET PO SCH (09:37)
[2018-05-23] MEDS: DORNASE ALFA 2.5 MG/2.5 ML VIAL RESP TX SCH ×2 (10:45→20:18)
[2018-05-23] MEDS: INSULIN LISPRO 100 UNIT/ML SUBCUT SCH ×4 (11:45→21:40)
[2018-05-23] MEDS: NYSTATIN POWDER 15 GM BOTTLE TOP SCH ×2 (11:45→21:40)
[2018-05-23] MEDS ORDERED: FUROSEMIDE 40 MG/4 ML VIAL IV ONE (13:00)
[2018-05-23] MEDS: AZITHROMYCIN INJ 500 MG in SODIUM CHLORIDE 0.9% 250 ML IV SCH (14:50)
[2018-05-23 16:10] LABS: Hematocrit 30.1 VOL% (35.7-47.0); Hemoglobin 9.6 GM/DL (12.0-16.0)
[2018-05-24] MEDS: ALBUTEROL/IPRATROPIUM 3 ML NEB RESP TX SCH ×6 (03:24→23:33)
[2018-05-24 05:34] LABS: Basophils % 0.1 % (0.0-0.8); Hematocrit 28.9 VOL% (35.7-47.0); Hemoglobin 9.2 GM/DL (12.0-16.0); Immature Granulocytes % 1.4 %; Lymphocytes # 0.3 10*3/uL (1.4-4.0); Lymphocytes % 1.2 % (21.3-54.2); Mean Corpuscular HGB Conc 31.8 GM/DL (32-36); Mean Corpuscular Hemoglobin 26 PG (27-34); Mean Corpuscular Volume 81.2 FL (87-102); Mean Platelet Volume 10.3 FL (9.6-12.0); Monocytes # 0.7 10*3/uL (0.11-0.8); Monocytes % 3.4 % (1.7-12.7); Neutrophils # 20.5 10*3/uL (1.4-7.4); Neutrophils % 93.9 % (38.7-73.9); Platelet Count 458 T/CUMM (130-400); Red Blood Count 3.56 MC/CUMM (3.8-5.5); Red Cell Distribution Width 16.5 % (9.3-17.3); White Blood Count 21.9 T/CUMM (4-12)
[2018-05-24 05:55] LABS: Calcium 8.2 MG/DL (8.5-10.1); Osmolality,Calculated 298.4 MOS/KG (273-304); Potassium 4.2 MMOL/L (3.5-5.1)
[2018-05-24 06:12] LABS: Lymphocytes 2 % (20-55); Segmented Neutrophils 94 % (50-85); Total Cells Counted 100
[2018-05-24 06:13] LABS: Hypochromasia 1+; Microcytosis 1+; Ovalocytes Slight; Platelet Estimate Adequate
[2018-05-24] MEDS: LEVOTHYROXINE 50 MCG TABLET PO SCH (06:44)
[2018-05-24] MEDS: DORNASE ALFA 2.5 MG/2.5 ML VIAL RESP TX SCH ×2 (06:45→18:05)
[2018-05-24] MEDS: methylPREDNISolone SOD SUC 40 MG/1 ML VIAL IV SCH ×3 (07:15→23:30)
[2018-05-24] MEDS: DRONEDARONE 400 MG TABLET PO SCH ×2 (08:15→16:56)
[2018-05-24] MEDS: PIPERACILLIN/TAZOBACTAM 3,375 MG in SODIUM CHLORIDE 0.9% 100 ML IV SCH ×2 (08:15→15:57)
[2018-05-24] MEDS: INSULIN LISPRO 100 UNIT/ML SUBCUT SCH ×4 (08:15→21:22)
[2018-05-24] MEDS: ATORVASTATIN 40 MG TABLET PO SCH (08:16)
[2018-05-24] MEDS: POTASSIUM CHLORIDE 20 MEQ TABLET PO SCH (08:16)
[2018-05-24] MEDS: PANTOPRAZOLE 40 MG TABLET PO SCH (08:16)
[2018-05-24] MEDS: LOPERAMIDE 2 MG CAPSULE PO PRN (08:16)
[2018-05-24] MEDS: FUROSEMIDE 40 MG/4 ML VIAL IV SCH (08:17)
[2018-05-24] MEDS: APIXABAN 5 MG TABLET PO SCH ×2 (08:17→09:21)
[2018-05-24] MEDS: DICLOFENAC 1% GEL 100 GM TUBE TOP SCH ×4 (08:28→21:23)
[2018-05-24] MEDS: NYSTATIN POWDER 15 GM BOTTLE TOP SCH ×2 (08:28→21:24)
[2018-05-24] MEDS: ZINC OXIDE PASTE 113 GM TUBE TOP SCH ×2 (08:28→21:23)
[2018-05-24 10:46] LABS: c-ANCA Negative (Negative); p-ANCA Negative (Negative)
[2018-05-24] MEDS: AZITHROMYCIN INJ 500 MG in SODIUM CHLORIDE 0.9% 250 ML IV SCH (12:19)
[2018-05-25] MEDS: PIPERACILLIN/TAZOBACTAM 3,375 MG in SODIUM CHLORIDE 0.9% 100 ML IV SCH ×3 (00:22→16:09)
[2018-05-25] MEDS: ALBUTEROL/IPRATROPIUM 3 ML NEB RESP TX SCH ×5 (04:09→19:18)
[2018-05-25 04:38] LABS: Basophils % 0.1 % (0.0-0.8); Hematocrit 30.8 VOL% (35.7-47.0); Hemoglobin 9.8 GM/DL (12.0-16.0); Immature Granulocytes % 2.1 %; Lymphocytes # 0.3 10*3/uL (1.4-4.0); Lymphocytes % 1.4 % (21.3-54.2); Mean Corpuscular HGB Conc 31.8 GM/DL (32-36); Mean Corpuscular Hemoglobin 26 PG (27-34); Mean Corpuscular Volume 81.5 FL (87-102); Mean Platelet Volume 10.5 FL (9.6-12.0); Monocytes # 0.8 10*3/uL (0.11-0.8); Monocytes % 3.5 % (1.7-12.7); Neutrophils % 92.9 % (38.7-73.9); Platelet Count 486 T/CUMM (130-400); Red Blood Count 3.78 MC/CUMM (3.8-5.5); Red Cell Distribution Width 16.9 % (9.3-17.3); White Blood Count 23.7 T/CUMM (4-12)
[2018-05-25 05:04] LABS: Calcium 8.3 MG/DL (8.5-10.1); Elliptocytes Few; Hypochromasia 1+; Lymphocytes 4 % (20-55); Osmolality,Calculated 295.3 MOS/KG (273-304); Platelet Estimate Adequate; Potassium 4.5 MMOL/L (3.5-5.1); Segmented Neutrophils 95 % (50-85); Total Cells Counted 100
[2018-05-25 05:05] LABS: Microcytosis 1+
[2018-05-25] MEDS: methylPREDNISolone SOD SUC 40 MG/1 ML VIAL IV SCH ×3 (06:31→23:02)
[2018-05-25] MEDS: LEVOTHYROXINE 50 MCG TABLET PO SCH (06:31)
[2018-05-25] MEDS: DORNASE ALFA 2.5 MG/2.5 ML VIAL RESP TX SCH ×2 (07:35→19:19)
[2018-05-25] MEDS: INSULIN LISPRO 100 UNIT/ML SUBCUT SCH ×5 (08:39→23:00)
[2018-05-25] MEDS: DRONEDARONE 400 MG TABLET PO SCH ×2 (08:40→17:04)
[2018-05-25] MEDS: FUROSEMIDE 40 MG/4 ML VIAL IV SCH (08:47)
[2018-05-25] MEDS: ASPIRIN EC 81 MG TABLET PO SCH (08:49)
[2018-05-25] MEDS: POTASSIUM CHLORIDE 20 MEQ TABLET PO SCH (08:49)
[2018-05-25] MEDS: ATORVASTATIN 40 MG TABLET PO SCH (08:50)
[2018-05-25] MEDS: DICLOFENAC 1% GEL 100 GM TUBE TOP SCH ×4 (08:50→23:01)
[2018-05-25] MEDS: NYSTATIN POWDER 15 GM BOTTLE TOP SCH ×2 (08:50→23:01)
[2018-05-25] MEDS: ZINC OXIDE PASTE 113 GM TUBE TOP SCH ×2 (08:50→22:59)
[2018-05-25] MEDS: PANTOPRAZOLE 40 MG TABLET PO SCH (08:50)
[2018-05-26] MEDS: PIPERACILLIN/TAZOBACTAM 3,375 MG in SODIUM CHLORIDE 0.9% 100 ML IV SCH ×3 (00:13→16:41)
[2018-05-26] MEDS: ALBUTEROL/IPRATROPIUM 3 ML NEB RESP TX SCH ×7 (00:25→23:42)
[2018-05-26 04:53] LABS: Basophils # 0.1 10*3/uL (0.0-0.2); Basophils % 0.2 % (0.0-0.8); Hematocrit 32.5 VOL% (35.7-47.0); Hemoglobin 10.3 GM/DL (12.0-16.0); Immature Granulocytes % 2.4 %; Immature Granulocytes Absolute 0.73 #; Lymphocytes # 0.2 10*3/uL (1.4-4.0); Lymphocytes % 0.6 % (21.3-54.2); Mean Corpuscular HGB Conc 31.7 GM/DL (32-36); Mean Corpuscular Hemoglobin 26 PG (27-34); Mean Corpuscular Volume 82.5 FL (87-102); Mean Platelet Volume 10.6 FL (9.6-12.0); Monocytes % 3.4 % (1.7-12.7); Neutrophils # 28.1 10*3/uL (1.4-7.4); Neutrophils % 93.4 % (38.7-73.9); Platelet Count 519 T/CUMM (130-400); Red Blood Count 3.94 MC/CUMM (3.8-5.5); Red Cell Distribution Width 17.3 % (9.3-17.3); White Blood Count 30.1 T/CUMM (4-12)
[2018-05-26 05:14] LABS: Calcium 8.6 MG/DL (8.5-10.1); Osmolality,Calculated 301.4 MOS/KG (273-304); Potassium 4.5 MMOL/L (3.5-5.1)
[2018-05-26 06:02] LABS: Hypochromasia Slight; Lymphocytes 1 % (20-55); Platelet Estimate Normal; Segmented Neutrophils 99 % (50-85); Total Cells Counted 100
[2018-05-26] MEDS: LEVOTHYROXINE 50 MCG TABLET PO SCH (06:37)
[2018-05-26] MEDS: methylPREDNISolone SOD SUC 40 MG/1 ML VIAL IV SCH ×3 (06:40→23:29)
[2018-05-26] MEDS: DORNASE ALFA 2.5 MG/2.5 ML VIAL RESP TX SCH ×2 (07:46→19:27)
[2018-05-26] MEDS: DRONEDARONE 400 MG TABLET PO SCH ×2 (08:09→17:17)
[2018-05-26] MEDS: INSULIN LISPRO 100 UNIT/ML SUBCUT SCH ×4 (08:09→21:46)
[2018-05-26] MEDS: ZINC OXIDE PASTE 113 GM TUBE TOP SCH ×2 (08:32→21:45)
[2018-05-26] MEDS: NYSTATIN POWDER 15 GM BOTTLE TOP SCH ×2 (08:33→21:46)
[2018-05-26] MEDS: DICLOFENAC 1% GEL 100 GM TUBE TOP SCH ×4 (08:33→21:46)
[2018-05-26] MEDS: PANTOPRAZOLE 40 MG TABLET PO SCH (08:59)
[2018-05-26] MEDS: ATORVASTATIN 40 MG TABLET PO SCH (08:59)
[2018-05-26] MEDS: ASPIRIN EC 81 MG TABLET PO SCH (08:59)
[2018-05-26] MEDS: CLOTRIMAZOLE 10 MG TROCHE PO SCH ×4 (08:59→21:45)
[2018-05-26] MEDS: POTASSIUM CHLORIDE 20 MEQ TABLET PO SCH (08:59)
[2018-05-26] MEDS ORDERED: NYSTATIN 500,000 UNIT/5 ML UDCUP SWISH/SWAL SCH (09:00)
[2018-05-27] MEDS: PIPERACILLIN/TAZOBACTAM 3,375 MG in SODIUM CHLORIDE 0.9% 100 ML IV SCH ×3 (00:07→17:33)
[2018-05-27] MEDS: ALBUTEROL/IPRATROPIUM 3 ML NEB RESP TX SCH ×6 (03:50→23:00)
[2018-05-27 04:18] LABS: Basophils % 0.1 % (0.0-0.8); Hemoglobin 9.3 GM/DL (12.0-16.0); Immature Granulocytes % 2.4 %; Immature Granulocytes Absolute 0.66 #; Lymphocytes # 0.2 10*3/uL (1.4-4.0); Lymphocytes % 0.6 % (21.3-54.2); Mean Corpuscular Hemoglobin 26 PG (27-34); Mean Corpuscular Volume 83.3 FL (87-102); Mean Platelet Volume 10.5 FL (9.6-12.0); Monocytes # 1.1 10*3/uL (0.11-0.8); Neutrophils # 26.1 10*3/uL (1.4-7.4); Neutrophils % 92.9 % (38.7-73.9); Platelet Count 473 T/CUMM (130-400); Red Cell Distribution Width 17.5 % (9.3-17.3); White Blood Count 28.1 T/CUMM (4-12)
[2018-05-27 04:35] LABS: Calcium 8.3 MG/DL (8.5-10.1); Osmolality,Calculated 297.3 MOS/KG (273-304); Potassium 5.1 MMOL/L (3.5-5.1)
[2018-05-27 05:23] LABS: Band Neutrophils 1 % (0-10); Hypochromasia 1+; Lymphocytes 1 % (20-55); Microcytosis 1+; Segmented Neutrophils 93 % (50-85); Total Cells Counted 100
[2018-05-27 05:24] LABS: Acanthocytes Few; Ovalocytes Few; Platelet Estimate Increased; Target Cells Slight
[2018-05-27] MEDS: methylPREDNISolone SOD SUC 40 MG/1 ML VIAL IV SCH ×3 (06:21→23:18)
[2018-05-27] MEDS: LEVOTHYROXINE 50 MCG TABLET PO SCH ×2 (06:24→08:32)
[2018-05-27] MEDS ORDERED: PHENOL 1.4% THROAT SPRAY 177 ML BOTTLE PO PRN (07:02)
[2018-05-27] MEDS: DORNASE ALFA 2.5 MG/2.5 ML VIAL RESP TX SCH ×2 (08:24→19:26)
[2018-05-27] MEDS: INSULIN LISPRO 100 UNIT/ML SUBCUT SCH ×4 (08:31→21:08)
[2018-05-27] MEDS: DRONEDARONE 400 MG TABLET PO SCH ×2 (08:32→17:33)
[2018-05-27] MEDS ORDERED: FUROSEMIDE 40 MG/4 ML VIAL IV ONE (09:38)
[2018-05-27] MEDS ORDERED: FUROSEMIDE 100 MG/10 ML VIAL ONE (10:09)
[2018-05-27] MEDS ORDERED: FUROSEMIDE 20 MG/2 ML VIAL ONE (10:09)
[2018-05-27] MEDS: DICLOFENAC 1% GEL 100 GM TUBE TOP SCH ×4 (10:28→21:13)
[2018-05-27] MEDS: NYSTATIN POWDER 15 GM BOTTLE TOP SCH ×2 (10:28→21:13)
[2018-05-27] MEDS: ZINC OXIDE PASTE 113 GM TUBE TOP SCH ×2 (10:28→21:13)
[2018-05-27] MEDS: ATORVASTATIN 40 MG TABLET PO SCH (10:29)
[2018-05-27] MEDS: busPIRone 5 MG TABLET PO SCH ×2 (10:29→21:08)
[2018-05-27] MEDS: ASPIRIN EC 81 MG TABLET PO SCH (10:29)
[2018-05-27] MEDS: PANTOPRAZOLE 40 MG TABLET PO SCH (10:29)
[2018-05-27] MEDS: POTASSIUM CHLORIDE 20 MEQ TABLET PO SCH (10:30)
[2018-05-27] MEDS: CLOTRIMAZOLE 10 MG TROCHE PO SCH ×4 (10:30→21:08)
[2018-05-28] MEDS: PIPERACILLIN/TAZOBACTAM 3,375 MG in SODIUM CHLORIDE 0.9% 100 ML IV SCH ×3 (00:06→15:34)
[2018-05-28] MEDS: ALBUTEROL/IPRATROPIUM 3 ML NEB RESP TX SCH ×5 (03:26→19:59)
[2018-05-28 04:30] LABS: Basophils % 0.1 % (0.0-0.8); Hematocrit 28.1 VOL% (35.7-47.0); Hemoglobin 8.6 GM/DL (12.0-16.0); Immature Granulocytes % 2.8 %; Immature Granulocytes Absolute 0.68 #; Lymphocytes # 0.2 10*3/uL (1.4-4.0); Lymphocytes % 0.7 % (21.3-54.2); Mean Corpuscular HGB Conc 30.6 GM/DL (32-36); Mean Corpuscular Hemoglobin 26 PG (27-34); Mean Corpuscular Volume 84.1 FL (87-102); Monocytes # 0.9 10*3/uL (0.11-0.8); Monocytes % 3.6 % (1.7-12.7); Neutrophils # 22.3 10*3/uL (1.4-7.4); Neutrophils % 92.8 % (38.7-73.9); Platelet Count 395 T/CUMM (130-400); Red Blood Count 3.34 MC/CUMM (3.8-5.5); Red Cell Distribution Width 18.3 % (9.3-17.3); White Blood Count 24.1 T/CUMM (4-12)
[2018-05-28 04:41] LABS: Allen Test Positive; Pt O2 Delivery Device Other
[2018-05-28 04:47] LABS: ABG Base Excess -4.2 MMOL/L (-2.5-2.5); ABG HCO3 20.9 MMOL/L (20-26); ABG Oxygen Saturation 97.4 % (95-100); ABG PH 7.274 (7.35-7.45); ABG TCO2 21.2 MMOL/L (23-27)
[2018-05-28 04:49] LABS: Calcium 8.2 MG/DL (8.5-10.1); Osmolality,Calculated 298.8 MOS/KG (273-304); Potassium 4.6 MMOL/L (3.5-5.1)
[2018-05-28 04:54] LABS: Platelet Estimate Normal; Polychromasia Few; Segmented Neutrophils 98 % (50-85); Total Cells Counted 100
[2018-05-28 04:55] LABS: Target Cells Few
[2018-05-28] MEDS: LEVOTHYROXINE 50 MCG TABLET PO SCH (06:36)
[2018-05-28] MEDS: methylPREDNISolone SOD SUC 40 MG/1 ML VIAL IV SCH ×3 (06:37→22:09)
[2018-05-28] MEDS: DORNASE ALFA 2.5 MG/2.5 ML VIAL RESP TX SCH ×2 (07:27→20:08)
[2018-05-28] MEDS ORDERED: ASPIRIN CHEW 81 MG TABLET PO ONE (08:40)
[2018-05-28] MEDS: busPIRone 5 MG TABLET PO SCH ×2 (09:18→21:37)
[2018-05-28] MEDS: DICLOFENAC 1% GEL 100 GM TUBE TOP SCH ×4 (09:19→21:37)
[2018-05-28] MEDS: PANTOPRAZOLE 40 MG TABLET PO SCH (09:19)
[2018-05-28] MEDS: POTASSIUM CHLORIDE 20 MEQ TABLET PO SCH (09:19)
[2018-05-28] MEDS: CLOTRIMAZOLE 10 MG TROCHE PO SCH ×4 (09:19→21:50)
[2018-05-28] MEDS: NYSTATIN POWDER 15 GM BOTTLE TOP SCH ×2 (09:19→21:40)
[2018-05-28] MEDS: ZINC OXIDE PASTE 113 GM TUBE TOP SCH ×2 (09:19→21:37)
[2018-05-28] MEDS: ALBUTEROL 2.5 MG/3 ML NEB RESP TX PRN (09:30)
[2018-05-28] MEDS: DRONEDARONE 400 MG TABLET PO SCH ×2 (09:31→16:51)
[2018-05-28] MEDS: INSULIN LISPRO 100 UNIT/ML SUBCUT SCH ×4 (09:32→21:37)
[2018-05-28] MEDS: ATORVASTATIN 40 MG TABLET PO SCH (09:32)
[2018-05-28] MEDS ORDERED: ALPRAZolam 0.25 MG TABLET PO PRN (15:21)
[2018-05-28] MEDS ORDERED: FUROSEMIDE 40 MG/4 ML VIAL IV ONE (15:57)
[2018-05-28] MEDS ORDERED: PROPOFOL 1,000 MG/100 ML BOTTLE IV ONE ×2 (17:48→22:21)
[2018-05-28] MEDS ORDERED: MIDAZOLAM 10 MG/2 ML VIAL ONE (17:52)
[2018-05-28] MEDS ORDERED: ETOMIDATE 20 MG/10 ML VIAL IV ONE ×2 (17:52→18:17)
[2018-05-28] MEDS ORDERED: VECURONIUM 10 MG VIAL IV ONE (17:52)
[2018-05-28] MEDS ORDERED: SUCCINYLCHOLINE 200 MG/10 ML VIAL ONE (18:02)
[2018-05-28] MEDS ORDERED: SUCCINYLCHOLINE 200 MG/10 ML VIAL IV ONE (18:17)
[2018-05-28] MEDS ORDERED: MIDAZOLAM 2 MG/2 ML VIAL IV ONE (18:17)
[2018-05-28] MEDS: PHENYLEPHRINE DRIP 40 MG/250 ML PREMIX IV PRN (18:30)
[2018-05-28 18:32] LABS: ABG Base Excess 5.5 MMOL/L (-2.5-2.5); ABG HCO3 29.2 MMOL/L (20-26); ABG Oxygen Saturation 89.7 % (95-100); ABG PH 7.363 (7.35-7.45); ABG PO2 62.3 MM HG (80-95); ABG TCO2 29.4 MMOL/L (23-27); Allen Test Positive; Pt O2 Delivery Device Ventilator
[2018-05-28] MEDS ORDERED: PHENYLEPHRINE DRIP 40 MG/250 ML PREMIX IV ONE (18:36)
[2018-05-28] MEDS: PROPOFOL 1,000 MG/100 ML BOTTLE IV SCH ×2 (18:45→22:40)
[2018-05-28] MEDS: SODIUM CHLORIDE 0.9% 1,000 ML IV SCH (18:56)
[2018-05-28] MEDS: fentaNYL INJ 1,250 MCG in SODIUM CHLORIDE 0.9% 225 ML IV PRN (20:10)
[2018-05-29] MEDS: PIPERACILLIN/TAZOBACTAM 3,375 MG in SODIUM CHLORIDE 0.9% 100 ML IV SCH ×2 (01:06→11:05)
[2018-05-29] MEDS: ALBUTEROL/IPRATROPIUM 3 ML NEB RESP TX SCH ×6 (03:00→19:38)
[2018-05-29 04:10] LABS: Allen Test Positive; Pt O2 Delivery Device Ventilator
[2018-05-29 04:27] LABS: ABG Base Excess 4.6 MMOL/L (-2.5-2.5); ABG HCO3 28.6 MMOL/L (20-26); ABG Oxygen Saturation 99.2 % (95-100); ABG PCO2 54.7 MM HG (35-48); ABG PH 7.362 (7.35-7.45); ABG TCO2 28.6 MMOL/L (23-27)
[2018-05-29 04:48] LABS: Basophils # 0.1 10*3/uL (0.0-0.2); Basophils % 0.2 % (0.0-0.8); Hematocrit 29.6 VOL% (35.7-47.0); Hemoglobin 9.1 GM/DL (12.0-16.0); Immature Granulocytes % 2.9 %; Lymphocytes # 0.5 10*3/uL (1.4-4.0); Lymphocytes % 1.5 % (21.3-54.2); Mean Corpuscular HGB Conc 30.7 GM/DL (32-36); Mean Corpuscular Hemoglobin 26 PG (27-34); Mean Corpuscular Volume 85.5 FL (87-102); Mean Platelet Volume 10.8 FL (9.6-12.0); Monocytes # 1.1 10*3/uL (0.11-0.8); Monocytes % 3.7 % (1.7-12.7); Neutrophils # 28.3 10*3/uL (1.4-7.4); Neutrophils % 91.7 % (38.7-73.9); Platelet Count 434 T/CUMM (130-400); Red Blood Count 3.46 MC/CUMM (3.8-5.5); Red Cell Distribution Width 18.8 % (9.3-17.3); White Blood Count 30.9 T/CUMM (4-12)
[2018-05-29] MEDS: PROPOFOL 1,000 MG/100 ML BOTTLE IV SCH ×3 (04:50→17:17)
[2018-05-29] MEDS: PHENYLEPHRINE DRIP 40 MG/250 ML PREMIX IV PRN ×2 (04:56→17:18)
[2018-05-29 05:12] LABS: Calcium 7.9 MG/DL (8.5-10.1); Osmolality,Calculated 295.1 MOS/KG (273-304); Potassium 4.8 MMOL/L (3.5-5.1)
[2018-05-29 05:17] LABS: Lymphocytes 1 % (20-55); Platelet Estimate Normal; Polychromasia Few; Segmented Neutrophils 97 % (50-85); Total Cells Counted 100
[2018-05-29] MEDS: SODIUM CHLORIDE 0.9% 1,000 ML IV SCH ×2 (05:19→16:57)
[2018-05-29] MEDS: methylPREDNISolone SOD SUC 40 MG/1 ML VIAL IV SCH ×3 (06:50→23:30)
[2018-05-29] MEDS: LEVOTHYROXINE 50 MCG TABLET PO SCH (06:50)
[2018-05-29] MEDS ORDERED: MEPERIDINE 50 MG/1 ML VIAL IM ONE (07:00)
[2018-05-29] MEDS ORDERED: PROMETHAZINE 25 MG/1 ML VIAL IM ONE (07:00)
[2018-05-29] MEDS ORDERED: GLYCOPYRROLATE 0.4 MG/2 ML VIAL IM ONE (07:00)
[2018-05-29] MEDS: DORNASE ALFA 2.5 MG/2.5 ML VIAL RESP TX SCH (07:27)
[2018-05-29] MEDS ORDERED: LIDOCAINE 1% 20 ML VIAL MISC INJ ONE (07:30)
[2018-05-29] MEDS ORDERED: MIDAZOLAM 2 MG/2 ML VIAL IV ONE (07:30)
[2018-05-29] MEDS ORDERED: LIDOCAINE 2% 20 ML VIAL RESP TX ONE (07:30)
[2018-05-29] MEDS ORDERED: LIDOCAINE 2% VISCOUS 100 ML BOTTLE SWISH/SPIT ONE (07:30)
[2018-05-29] MEDS: FLUCONAZOLE 100 MG TABLET PER TUBE SCH (09:32)
[2018-05-29] MEDS: busPIRone 5 MG TABLET PO SCH ×2 (09:32→20:16)
[2018-05-29] MEDS: ATORVASTATIN 40 MG TABLET PO SCH (09:33)
[2018-05-29] MEDS: ZINC OXIDE PASTE 113 GM TUBE TOP SCH ×2 (09:33→20:17)
[2018-05-29] MEDS: POTASSIUM CHLORIDE 20 MEQ/15 ML UDCUP PER TUBE PRN (09:33)
[2018-05-29] MEDS: PANTOPRAZOLE 40 MG VIAL IV SCH (09:33)
[2018-05-29] MEDS: POTASSIUM CHLORIDE 20 MEQ TABLET PO SCH (09:35)
[2018-05-29] MEDS: DICLOFENAC 1% GEL 100 GM TUBE TOP SCH ×4 (09:35→20:18)
[2018-05-29] MEDS: INSULIN LISPRO 100 UNIT/ML SUBCUT SCH ×4 (09:35→23:30)
[2018-05-29] MEDS: NYSTATIN POWDER 15 GM BOTTLE TOP SCH ×2 (09:35→20:17)
[2018-05-29] MEDS: MEROPENEM 1,000 MG in SODIUM CHLORIDE 0.9% 100 ML IV SCH ×2 (09:41→20:16)
[2018-05-29] MEDS: DRONEDARONE 400 MG TABLET PO SCH ×2 (09:41→16:59)
[2018-05-29] MEDS: fentaNYL INJ 1,250 MCG in SODIUM CHLORIDE 0.9% 225 ML IV PRN (10:46)
[2018-05-29] MEDS: VANCOMYCIN INJ 1,000 MG in SODIUM CHLORIDE 0.9% 250 ML IV SCH (11:30)
[2018-05-29] MEDS ORDERED: DEXTROSE 50% 25 GM/50 ML SYRINGE IV PRN (14:15)
[2018-05-29] MEDS ORDERED: GLUCAGON 1 MG VIAL IM PRN (14:15)
[2018-05-29] MEDS ORDERED: INSULIN LISPRO 100 UNIT/ML SUBCUT SCH (16:30)
[2018-05-30] MEDS: ALBUTEROL/IPRATROPIUM 3 ML NEB RESP TX SCH ×7 (00:26→22:22)
[2018-05-30] MEDS: PROPOFOL 1,000 MG/100 ML BOTTLE IV SCH ×4 (02:06→20:30)
[2018-05-30] MEDS: SODIUM CHLORIDE 0.9% 1,000 ML IV SCH (02:31)
[2018-05-30 03:55] LABS: Basophils % 0.1 % (0.0-0.8); Hematocrit 27.5 VOL% (35.7-47.0); Hemoglobin 8.4 GM/DL (12.0-16.0); Immature Granulocytes % 1.7 %; Immature Granulocytes Absolute 0.42 #; Lymphocytes # 0.1 10*3/uL (1.4-4.0); Lymphocytes % 0.5 % (21.3-54.2); Mean Corpuscular HGB Conc 30.5 GM/DL (32-36); Mean Corpuscular Hemoglobin 27 PG (27-34); Mean Corpuscular Volume 87.3 FL (87-102); Mean Platelet Volume 10.5 FL (9.6-12.0); Monocytes # 1.2 10*3/uL (0.11-0.8); Monocytes % 4.6 % (1.7-12.7); Neutrophils # 23.4 10*3/uL (1.4-7.4); Neutrophils % 93.1 % (38.7-73.9); Platelet Count 314 T/CUMM (130-400); Red Blood Count 3.15 MC/CUMM (3.8-5.5); Red Cell Distribution Width 18.8 % (9.3-17.3); White Blood Count 25.1 T/CUMM (4-12)
[2018-05-30 04:10] LABS: Calcium 7.6 MG/DL (8.5-10.1); Osmolality,Calculated 301.8 MOS/KG (273-304); Potassium 4.9 MMOL/L (3.5-5.1)
[2018-05-30 04:19] LABS: Prealbumin 19.4 MG/DL (20-40)
[2018-05-30 04:40] LABS: ABG HCO3 26.2 MMOL/L (20-26); ABG Oxygen Saturation 97.1 % (95-100); ABG PCO2 52.4 MM HG (35-48); ABG PH 7.342 (7.35-7.45); ABG PO2 90.6 MM HG (80-95); ABG TCO2 26.4 MMOL/L (23-27); Allen Test Positive; Pt O2 Delivery Device Ventilator
[2018-05-30 04:42] LABS: Hypochromasia 1+; Ovalocytes Slight; Platelet Estimate Adequate; Segmented Neutrophils 98 % (50-85); Total Cells Counted 100
[2018-05-30] MEDS: LEVOTHYROXINE 50 MCG TABLET PO SCH (06:10)
[2018-05-30] MEDS: methylPREDNISolone SOD SUC 40 MG/1 ML VIAL IV SCH ×3 (06:10→22:08)
[2018-05-30] MEDS: INSULIN LISPRO 100 UNIT/ML SUBCUT SCH ×3 (06:10→18:15)
[2018-05-30] MEDS ORDERED: FUROSEMIDE 20 MG/2 ML VIAL IV ONE (07:28)
[2018-05-30] MEDS: NYSTATIN POWDER 15 GM BOTTLE TOP SCH ×2 (09:00→21:19)
[2018-05-30] MEDS: ZINC OXIDE PASTE 113 GM TUBE TOP SCH ×2 (09:00→21:19)
[2018-05-30] MEDS: DICLOFENAC 1% GEL 100 GM TUBE TOP SCH ×4 (09:00→21:19)
[2018-05-30] MEDS: VANCOMYCIN INJ 1,000 MG in SODIUM CHLORIDE 0.9% 250 ML IV SCH (09:50)
[2018-05-30] MEDS: POTASSIUM CHLORIDE 20 MEQ TABLET PO SCH (09:50)
[2018-05-30] MEDS: DRONEDARONE 400 MG TABLET PO SCH ×2 (09:50→17:20)
[2018-05-30] MEDS: MEROPENEM 1,000 MG in SODIUM CHLORIDE 0.9% 100 ML IV SCH ×2 (09:50→21:17)
[2018-05-30] MEDS: busPIRone 5 MG TABLET PO SCH ×2 (09:50→21:14)
[2018-05-30] MEDS: POTASSIUM CHLORIDE 20 MEQ/15 ML UDCUP PER TUBE PRN (09:50)
[2018-05-30] MEDS: ATORVASTATIN 40 MG TABLET PO SCH (09:50)
[2018-05-30] MEDS: FLUCONAZOLE 100 MG TABLET PER TUBE SCH (09:50)
[2018-05-30] MEDS: ASPIRIN EC 81 MG TABLET PO SCH (09:50)
[2018-05-30] MEDS: PANTOPRAZOLE 40 MG VIAL IV SCH (09:55)
[2018-05-30] MEDS: PHENYLEPHRINE DRIP 40 MG/250 ML PREMIX IV PRN (10:40)
[2018-05-30] MEDS: ENOXAPARIN 40 MG/0.4 ML SYRINGE SUBCUT SCH (10:45)
[2018-05-30] MEDS: fentaNYL INJ 1,250 MCG in SODIUM CHLORIDE 0.9% 225 ML IV PRN (18:20)
[2018-05-31] MEDS: INSULIN LISPRO 100 UNIT/ML SUBCUT SCH ×4 (00:37→18:20)
[2018-05-31] MEDS: ALBUTEROL/IPRATROPIUM 3 ML NEB RESP TX SCH ×6 (02:26→23:59)
[2018-05-31 03:04] LABS: ABG Base Excess 1.5 MMOL/L (-2.5-2.5); ABG HCO3 25.8 MMOL/L (20-26); ABG Oxygen Saturation 96.9 % (95-100); ABG PCO2 50.9 MM HG (35-48); ABG PH 7.345 (7.35-7.45); ABG PO2 87.8 MM HG (80-95); ABG TCO2 25.8 MMOL/L (23-27); Allen Test Positive; Pt O2 Delivery Device Ventilator
[2018-05-31 05:43] LABS: Basophils % 0.1 % (0.0-0.8); Hematocrit 26.6 VOL% (35.7-47.0); Immature Granulocytes Absolute 0.48 #; Lymphocytes # 0.3 10*3/uL (1.4-4.0); Lymphocytes % 1.3 % (21.3-54.2); Mean Corpuscular HGB Conc 30.1 GM/DL (32-36); Mean Corpuscular Hemoglobin 26 PG (27-34); Mean Corpuscular Volume 87.2 FL (87-102); Mean Platelet Volume 11.4 FL (9.6-12.0); Monocytes # 0.9 10*3/uL (0.11-0.8); Monocytes % 3.9 % (1.7-12.7); Neutrophils # 22.2 10*3/uL (1.4-7.4); Neutrophils % 92.7 % (38.7-73.9); Platelet Count 251 T/CUMM (130-400); Red Blood Count 3.05 MC/CUMM (3.8-5.5); Red Cell Distribution Width 19.3 % (9.3-17.3); White Blood Count 23.9 T/CUMM (4-12)
[2018-05-31] MEDS: PROPOFOL 1,000 MG/100 ML BOTTLE IV SCH ×3 (05:59→22:00)
[2018-05-31 06:02] LABS: Band Neutrophils 1 % (0-10); Elliptocytes Few; Hypochromasia 1+; Lymphocytes 2 % (20-55); Platelet Estimate Adequate; Segmented Neutrophils 96 % (50-85); Total Cells Counted 100
[2018-05-31 06:09] LABS: Calcium 7.9 MG/DL (8.5-10.1); Osmolality,Calculated 304.8 MOS/KG (273-304); Potassium 5.5 MMOL/L (3.5-5.1)
[2018-05-31] MEDS: LEVOTHYROXINE 50 MCG TABLET PO SCH (06:50)
[2018-05-31] MEDS: methylPREDNISolone SOD SUC 40 MG/1 ML VIAL IV SCH ×3 (07:40→22:21)
[2018-05-31] MEDS: DICLOFENAC 1% GEL 100 GM TUBE TOP SCH ×4 (09:00→22:20)
[2018-05-31] MEDS: ENOXAPARIN 40 MG/0.4 ML SYRINGE SUBCUT SCH (09:10)
[2018-05-31] MEDS: PANTOPRAZOLE 40 MG VIAL IV SCH (09:15)
[2018-05-31] MEDS: MEROPENEM 1,000 MG in SODIUM CHLORIDE 0.9% 100 ML IV SCH ×2 (09:15→22:19)
[2018-05-31] MEDS: FLUCONAZOLE 100 MG TABLET PER TUBE SCH (09:30)
[2018-05-31] MEDS: ATORVASTATIN 40 MG TABLET PO SCH (09:30)
[2018-05-31] MEDS: DRONEDARONE 400 MG TABLET PO SCH ×2 (09:30→18:20)
[2018-05-31] MEDS: ASPIRIN EC 81 MG TABLET PO SCH (09:30)
[2018-05-31] MEDS: VANCOMYCIN INJ 1,000 MG in SODIUM CHLORIDE 0.9% 250 ML IV SCH (09:30)
[2018-05-31] MEDS: busPIRone 5 MG TABLET PO SCH ×2 (09:30→22:19)
[2018-05-31] MEDS: ZINC OXIDE PASTE 113 GM TUBE TOP SCH ×2 (12:20→22:19)
[2018-05-31] MEDS: NYSTATIN POWDER 15 GM BOTTLE TOP SCH ×2 (12:20→22:19)
[2018-05-31] MEDS ORDERED: MORPHINE 4 MG/1 ML VIAL ONE (13:18)
[2018-06-01] MEDS: INSULIN LISPRO 100 UNIT/ML SUBCUT SCH ×5 (00:49→23:41)
[2018-06-01] MEDS: fentaNYL INJ 1,250 MCG in SODIUM CHLORIDE 0.9% 225 ML IV PRN ×2 (02:13→16:29)
[2018-06-01 02:58] LABS: ABG Base Excess 0.2 MMOL/L (-2.5-2.5); ABG HCO3 24.6 MMOL/L (20-26); ABG Oxygen Saturation 93.6 % (95-100); ABG PCO2 52.3 MM HG (35-48); ABG PH 7.318 (7.35-7.45); ABG PO2 71.4 MM HG (80-95); ABG TCO2 25.1 MMOL/L (23-27); Allen Test Positive; Pt O2 Delivery Device Ventilator
[2018-06-01] MEDS: ALBUTEROL/IPRATROPIUM 3 ML NEB RESP TX SCH ×6 (03:51→23:26)
[2018-06-01 05:30] LABS: Basophils % 0.1 % (0.0-0.8); Hematocrit 26.7 VOL% (35.7-47.0); Immature Granulocytes Absolute 0.76 #; Lymphocytes # 0.3 10*3/uL (1.4-4.0); Mean Corpuscular Hemoglobin 26 PG (27-34); Mean Corpuscular Volume 87.5 FL (87-102); Mean Platelet Volume 10.7 FL (9.6-12.0); Monocytes # 0.9 10*3/uL (0.11-0.8); Monocytes % 3.7 % (1.7-12.7); NRBC # 0.02 10*3/uL; Neutrophils # 23.5 10*3/uL (1.4-7.4); Neutrophils % 92.2 % (38.7-73.9); Platelet Count 196 T/CUMM (130-400); Red Blood Count 3.05 MC/CUMM (3.8-5.5); Red Cell Distribution Width 19.4 % (9.3-17.3); White Blood Count 25.5 T/CUMM (4-12)
[2018-06-01] MEDS: LEVOTHYROXINE 50 MCG TABLET PO SCH (05:56)
[2018-06-01 05:57] LABS: Hypochromasia 1+; Lymphocytes 2 % (20-55); Ovalocytes Slight; Platelet Estimate Adequate; Segmented Neutrophils 96 % (50-85); Total Cells Counted 100
[2018-06-01 06:02] LABS: Calcium 8.1 MG/DL (8.5-10.1); Osmolality,Calculated 297.4 MOS/KG (273-304)
[2018-06-01] MEDS: methylPREDNISolone SOD SUC 40 MG/1 ML VIAL IV SCH ×2 (06:05→17:13)
[2018-06-01 06:08] LABS: Potassium 6.1 MMOL/L (3.5-5.1)
[2018-06-01] MEDS ORDERED: DEXTROSE IV SCH (06:30)
[2018-06-01] MEDS ORDERED: [UNRECOGNIZED DRUG - OTHER] IV SCH (06:30)
[2018-06-01] MEDS ORDERED: INSULIN REGULAR IV SCH (06:30)
[2018-06-01] MEDS ORDERED: SODIUM BICARB IV SCH (06:30)
[2018-06-01] MEDS: PROPOFOL 1,000 MG/100 ML BOTTLE IV SCH ×4 (06:48→21:33)
[2018-06-01] MEDS ORDERED: SODIUM POLYSTYRENE SULFATE 15 GM/60 ML BOTTLE PO ONE (07:30)
[2018-06-01] MEDS: busPIRone 5 MG TABLET PO SCH ×2 (08:55→20:27)
[2018-06-01] MEDS: ATORVASTATIN 40 MG TABLET PO SCH (08:55)
[2018-06-01] MEDS: PANTOPRAZOLE 40 MG VIAL IV SCH (08:55)
[2018-06-01] MEDS: FLUCONAZOLE 100 MG TABLET PER TUBE SCH (08:55)
[2018-06-01] MEDS: MEROPENEM 1,000 MG in SODIUM CHLORIDE 0.9% 100 ML IV SCH ×2 (08:55→20:26)
[2018-06-01] MEDS: DRONEDARONE 400 MG TABLET PO SCH ×2 (08:56→16:29)
[2018-06-01] MEDS: DICLOFENAC 1% GEL 100 GM TUBE TOP SCH ×4 (09:07→21:34)
[2018-06-01] MEDS: ZINC OXIDE PASTE 113 GM TUBE TOP SCH ×2 (09:07→21:34)
[2018-06-01] MEDS: NYSTATIN POWDER 15 GM BOTTLE TOP SCH ×2 (09:07→21:33)
[2018-06-01] MEDS: guaiFENesin 200 MG/10 ML UDCUP PER TUBE SCH ×4 (09:30→20:31)
[2018-06-01] MEDS: ASPIRIN CHEW 81 MG TABLET PO SCH (09:30)
[2018-06-01] MEDS ORDERED: guaiFENesin 200 MG/10 ML UDCUP PER TUBE SCH (09:30)
[2018-06-01] MEDS: ASPIRIN EC 81 MG TABLET PO SCH (10:01)
[2018-06-01] MEDS: VANCOMYCIN INJ 1,000 MG in SODIUM CHLORIDE 0.9% 250 ML IV SCH (10:54)
[2018-06-01] MEDS: ENOXAPARIN 40 MG/0.4 ML SYRINGE SUBCUT SCH (10:54)
[2018-06-01 13:07] LABS: Calcium 7.5 MG/DL (8.5-10.1); Osmolality,Calculated 303.1 MOS/KG (273-304); Potassium 5.8 MMOL/L (3.5-5.1)
[2018-06-01 21:09] LABS: Hematocrit 21.6 VOL% (35.7-47.0); Hemoglobin 6.5 GM/DL (12.0-16.0)
[2018-06-02] MEDS: guaiFENesin 200 MG/10 ML UDCUP PER TUBE SCH ×6 (01:49→20:30)
[2018-06-02] MEDS: ALBUTEROL/IPRATROPIUM 3 ML NEB RESP TX SCH ×6 (03:24→22:47)
[2018-06-02 03:30] LABS: Basophils # 0.1 10*3/uL (0.0-0.2); Basophils % 0.2 % (0.0-0.8); Hematocrit 29.2 VOL% (35.7-47.0); Hemoglobin 9.3 GM/DL (12.0-16.0); Immature Granulocytes % 3.9 %; Immature Granulocytes Absolute 1.21 #; Lymphocytes # 0.5 10*3/uL (1.4-4.0); Lymphocytes % 1.5 % (21.3-54.2); Mean Corpuscular HGB Conc 31.8 GM/DL (32-36); Mean Corpuscular Hemoglobin 29 PG (27-34); Mean Corpuscular Volume 89.6 FL (87-102); Mean Platelet Volume 11.8 FL (9.6-12.0); Monocytes # 1.1 10*3/uL (0.11-0.8); Monocytes % 3.6 % (1.7-12.7); NRBC # 0.03 10*3/uL; Neutrophils # 28.2 10*3/uL (1.4-7.4); Neutrophils % 90.8 % (38.7-73.9); Platelet Count 159 T/CUMM (130-400); Red Blood Count 3.26 MC/CUMM (3.8-5.5); Red Cell Distribution Width 17.2 % (9.3-17.3); White Blood Count 31.1 T/CUMM (4-12)
[2018-06-02 03:36] LABS: Calcium 7.6 MG/DL (8.5-10.1); Osmolality,Calculated 303.3 MOS/KG (273-304); Potassium 5.9 MMOL/L (3.5-5.1)
[2018-06-02 04:21] LABS: ABG Base Excess -1.1 MMOL/L (-2.5-2.5); ABG HCO3 25.8 MMOL/L (20-26); ABG Oxygen Saturation 95.4 % (95-100); ABG PCO2 51.4 MM HG (35-48); ABG PH 7.319 (7.35-7.45); ABG PO2 83.7 MM HG (80-95); ABG TCO2 27.4 MMOL/L (23-27); Allen Test Positive; Pt O2 Delivery Device Ventilator
[2018-06-02 05:07] LABS: Band Neutrophils 3 % (0-10); Segmented Neutrophils 94 % (50-85); Total Cells Counted 100
[2018-06-02 05:08] LABS: Acanthocytes Few; Anisocytosis 1+; Ovalocytes 1+
[2018-06-02 05:09] LABS: Platelet Estimate Adequate
[2018-06-02] MEDS: INSULIN LISPRO 100 UNIT/ML SUBCUT SCH ×4 (06:27→23:33)
[2018-06-02] MEDS: methylPREDNISolone SOD SUC 40 MG/1 ML VIAL IV SCH ×2 (06:27→18:23)
[2018-06-02] MEDS: LEVOTHYROXINE 50 MCG TABLET PO SCH (06:27)
[2018-06-02] MEDS: SODIUM CHLORIDE 0.9% 1,000 ML IV SCH ×2 (06:42→19:43)
[2018-06-02] MEDS ORDERED: SODIUM POLYSTYRENE SULFATE 15 GM/60 ML BOTTLE PO ONE ×2 (07:29→15:45)
[2018-06-02] MEDS: DRONEDARONE 400 MG TABLET PO SCH ×2 (09:00→16:43)
[2018-06-02] MEDS: busPIRone 5 MG TABLET PO SCH ×2 (09:00→20:24)
[2018-06-02] MEDS: ASPIRIN CHEW 81 MG TABLET PO SCH (09:01)
[2018-06-02] MEDS: FLUCONAZOLE 100 MG TABLET PER TUBE SCH (09:01)
[2018-06-02] MEDS: MEROPENEM 1,000 MG in SODIUM CHLORIDE 0.9% 100 ML IV SCH ×2 (09:01→20:24)
[2018-06-02] MEDS: ATORVASTATIN 40 MG TABLET PO SCH (09:01)
[2018-06-02] MEDS: PANTOPRAZOLE 40 MG VIAL IV SCH (09:02)
[2018-06-02] MEDS: MULTIVITAMIN LIQUID (CENTRUM) 60 ML BOTTLE PER TUBE SCH (09:03)
[2018-06-02] MEDS: ZINC OXIDE PASTE 113 GM TUBE TOP SCH ×2 (09:03→20:23)
[2018-06-02] MEDS: NYSTATIN POWDER 15 GM BOTTLE TOP SCH ×2 (09:03→20:23)
[2018-06-02] MEDS: DICLOFENAC 1% GEL 100 GM TUBE TOP SCH ×4 (09:04→20:23)
[2018-06-02] MEDS: VANCOMYCIN INJ 750 MG in SODIUM CHLORIDE 0.9% 250 ML IV SCH (11:56)
[2018-06-02] MEDS: PROPOFOL 1,000 MG/100 ML BOTTLE IV SCH ×2 (14:47→23:34)
[2018-06-02] MEDS: fentaNYL INJ 1,250 MCG in SODIUM CHLORIDE 0.9% 225 ML IV PRN (19:38)
[2018-06-02] MEDS: ENOXAPARIN 30 MG/0.3 ML SYRINGE SUBCUT SCH (20:25)
[2018-06-03] MEDS: guaiFENesin 200 MG/10 ML UDCUP PER TUBE SCH ×6 (01:31→21:14)
[2018-06-03] MEDS: ALBUTEROL/IPRATROPIUM 3 ML NEB RESP TX SCH ×6 (02:28→23:25)
[2018-06-03 03:58] LABS: ABG Base Excess -0.8 MMOL/L (-2.5-2.5); ABG HCO3 23.7 MMOL/L (20-26); ABG Oxygen Saturation 96.6 % (95-100); ABG PCO2 48.8 MM HG (35-48); ABG PH 7.325 (7.35-7.45); ABG PO2 87.7 MM HG (80-95); ABG TCO2 23.9 MMOL/L (23-27); Allen Test Positive; Pt O2 Delivery Device Ventilator
[2018-06-03 05:33] LABS: Basophils % 0.1 % (0.0-0.8); Hematocrit 22.9 VOL% (35.7-47.0); Hemoglobin 7.2 GM/DL (12.0-16.0); Immature Granulocytes % 4.2 %; Immature Granulocytes Absolute 0.85 #; Lymphocytes # 0.4 10*3/uL (1.4-4.0); Lymphocytes % 1.8 % (21.3-54.2); Mean Corpuscular HGB Conc 31.4 GM/DL (32-36); Mean Corpuscular Hemoglobin 28 PG (27-34); Mean Corpuscular Volume 89.5 FL (87-102); Mean Platelet Volume 12.4 FL (9.6-12.0); Monocytes # 0.7 10*3/uL (0.11-0.8); Monocytes % 3.6 % (1.7-12.7); NRBC # 0.03 10*3/uL; Neutrophils # 18.4 10*3/uL (1.4-7.4); Neutrophils % 90.3 % (38.7-73.9); Platelet Count 122 T/CUMM (130-400); Red Blood Count 2.56 MC/CUMM (3.8-5.5); Red Cell Distribution Width 18.4 % (9.3-17.3); White Blood Count 20.3 T/CUMM (4-12)
[2018-06-03 05:44] LABS: Calcium 7.1 MG/DL (8.5-10.1); Osmolality,Calculated 307.1 MOS/KG (273-304); Potassium 4.8 MMOL/L (3.5-5.1)
[2018-06-03] MEDS: INSULIN LISPRO 100 UNIT/ML SUBCUT SCH ×4 (06:47→23:33)
[2018-06-03] MEDS: LEVOTHYROXINE 50 MCG TABLET PO SCH (06:51)
[2018-06-03] MEDS: methylPREDNISolone SOD SUC 40 MG/1 ML VIAL IV SCH ×2 (06:51→17:23)
[2018-06-03] MEDS: PROPOFOL 1,000 MG/100 ML BOTTLE IV SCH ×3 (07:49→20:19)
[2018-06-03 08:19] LABS: Band Neutrophils 1 % (0-10); Platelet Estimate Adequate; Polychromasia Slight; Segmented Neutrophils 97 % (50-85); Total Cells Counted 100
[2018-06-03] MEDS: busPIRone 5 MG TABLET PO SCH ×2 (08:29→20:00)
[2018-06-03] MEDS: FLUCONAZOLE 100 MG TABLET PER TUBE SCH (08:29)
[2018-06-03] MEDS: ASPIRIN CHEW 81 MG TABLET PO SCH (08:29)
[2018-06-03] MEDS: ATORVASTATIN 40 MG TABLET PO SCH (08:29)
[2018-06-03] MEDS: PANTOPRAZOLE 40 MG VIAL IV SCH (08:29)
[2018-06-03] MEDS: NYSTATIN POWDER 15 GM BOTTLE TOP SCH ×2 (08:30→20:01)
[2018-06-03] MEDS: MEROPENEM 1,000 MG in SODIUM CHLORIDE 0.9% 100 ML IV SCH ×2 (08:30→20:00)
[2018-06-03] MEDS: ZINC OXIDE PASTE 113 GM TUBE TOP SCH ×2 (08:30→20:01)
[2018-06-03] MEDS: DICLOFENAC 1% GEL 100 GM TUBE TOP SCH ×4 (08:30→20:01)
[2018-06-03] MEDS: MULTIVITAMIN LIQUID (CENTRUM) 60 ML BOTTLE PER TUBE SCH (08:34)
[2018-06-03] MEDS: DRONEDARONE 400 MG TABLET PO SCH ×2 (08:34→17:23)
[2018-06-03] MEDS: VANCOMYCIN INJ 750 MG in SODIUM CHLORIDE 0.9% 250 ML IV SCH (12:01)
[2018-06-03 15:52] LABS: Hematocrit 32.3 VOL% (35.7-47.0); Hemoglobin 10.8 GM/DL (12.0-16.0)
[2018-06-03] MEDS: fentaNYL INJ 1,250 MCG in SODIUM CHLORIDE 0.9% 225 ML IV PRN (19:48)
[2018-06-03] MEDS: ENOXAPARIN 30 MG/0.3 ML SYRINGE SUBCUT SCH (20:00)
[2018-06-04] MEDS: guaiFENesin 200 MG/10 ML UDCUP PER TUBE SCH ×6 (00:36→20:31)
[2018-06-04] MEDS: PROPOFOL 1,000 MG/100 ML BOTTLE IV SCH ×4 (02:06→21:43)
[2018-06-04] MEDS: ALBUTEROL/IPRATROPIUM 3 ML NEB RESP TX SCH ×6 (03:25→23:38)
[2018-06-04 03:52] LABS: Basophils % 0.2 % (0.0-0.8); Hematocrit 34.4 VOL% (35.7-47.0); Hemoglobin 11.4 GM/DL (12.0-16.0); Immature Granulocytes % 3.5 %; Immature Granulocytes Absolute 0.63 #; Lymphocytes # 0.3 10*3/uL (1.4-4.0); Lymphocytes % 1.7 % (21.3-54.2); Mean Corpuscular HGB Conc 33.1 GM/DL (32-36); Mean Corpuscular Hemoglobin 29 PG (27-34); Mean Corpuscular Volume 88.2 FL (87-102); Mean Platelet Volume 11.5 FL (9.6-12.0); Monocytes # 0.7 10*3/uL (0.11-0.8); Monocytes % 3.6 % (1.7-12.7); Neutrophils # 16.3 10*3/uL (1.4-7.4); Platelet Count 100 T/CUMM (130-400); Red Cell Distribution Width 17.2 % (9.3-17.3)
[2018-06-04 04:22] LABS: Calcium 7.4 MG/DL (8.5-10.1); Potassium 4.4 MMOL/L (3.5-5.1); Prealbumin 18.8 MG/DL (20-40)
[2018-06-04 04:39] LABS: ABG Base Excess -0.3 MMOL/L (-2.5-2.5); ABG HCO3 26.3 MMOL/L (20-26); ABG Oxygen Saturation 98.2 % (95-100); ABG PCO2 51.4 MM HG (35-48); ABG PH 7.327 (7.35-7.45); ABG PO2 131.2 MM HG (80-95); ABG TCO2 27.9 MMOL/L (23-27); Allen Test Positive; Pt O2 Delivery Device Ventilator
[2018-06-04 04:43] LABS: Band Neutrophils 3 % (0-10); Lymphocytes 2 % (20-55); Nucleated Red Blood Cells 1 (0-5); Segmented Neutrophils 92 % (50-85); Total Cells Counted 100
[2018-06-04 04:44] LABS: Acanthocytes 1+; Anisocytosis 1+
[2018-06-04 04:45] LABS: Platelet Estimate Adequate
[2018-06-04] MEDS: INSULIN LISPRO 100 UNIT/ML SUBCUT SCH ×4 (05:59→23:20)
[2018-06-04] MEDS: methylPREDNISolone SOD SUC 40 MG/1 ML VIAL IV SCH ×2 (05:59→18:20)
[2018-06-04] MEDS: LEVOTHYROXINE 50 MCG TABLET PO SCH (05:59)
[2018-06-04] MEDS: DICLOFENAC 1% GEL 100 GM TUBE TOP SCH ×4 (08:50→20:20)
[2018-06-04] MEDS: NYSTATIN POWDER 15 GM BOTTLE TOP SCH ×2 (08:50→20:20)
[2018-06-04] MEDS: FLUCONAZOLE 100 MG TABLET PER TUBE SCH (08:50)
[2018-06-04] MEDS: ATORVASTATIN 40 MG TABLET PO SCH (08:50)
[2018-06-04] MEDS: MULTIVITAMIN LIQUID (CENTRUM) 60 ML BOTTLE PER TUBE SCH (08:50)
[2018-06-04] MEDS: busPIRone 5 MG TABLET PO SCH ×2 (08:50→20:20)
[2018-06-04] MEDS: ASPIRIN CHEW 81 MG TABLET PO SCH (08:50)
[2018-06-04] MEDS: DRONEDARONE 400 MG TABLET PO SCH ×2 (08:50→16:20)
[2018-06-04] MEDS: PANTOPRAZOLE 40 MG VIAL IV SCH (08:50)
[2018-06-04] MEDS: glipiZIDE 5 MG TABLET PER TUBE SCH ×2 (08:50→16:50)
[2018-06-04] MEDS: MEROPENEM 1,000 MG in SODIUM CHLORIDE 0.9% 100 ML IV SCH ×2 (08:55→20:19)
[2018-06-04] MEDS: APIXABAN 5 MG TABLET PO SCH ×2 (10:00→20:20)
[2018-06-04] MEDS: ZINC OXIDE PASTE 113 GM TUBE TOP SCH ×2 (11:00→20:20)
[2018-06-04] MEDS: VANCOMYCIN INJ 750 MG in SODIUM CHLORIDE 0.9% 250 ML IV SCH (12:10)
[2018-06-04] MEDS: fentaNYL INJ 1,250 MCG in SODIUM CHLORIDE 0.9% 225 ML IV PRN (18:56)
[2018-06-05] MEDS: guaiFENesin 200 MG/10 ML UDCUP PER TUBE SCH ×6 (00:49→20:35)
[2018-06-05] MEDS: ALBUTEROL/IPRATROPIUM 3 ML NEB RESP TX SCH ×6 (02:55→22:48)
[2018-06-05 03:10] LABS: ABG Base Excess -0.5 MMOL/L (-2.5-2.5); ABG Oxygen Saturation 94.6 % (95-100); ABG PCO2 54.7 MM HG (35-48); ABG PH 7.303 (7.35-7.45); ABG PO2 75.3 MM HG (80-95); Allen Test Positive; Pt O2 Delivery Device Ventilator
[2018-06-05 04:17] LABS: Basophils % 0.2 % (0.0-0.8); Eosinophils % 0.1 % (0.00-10.9); Hematocrit 37.7 VOL% (35.7-47.0); Hemoglobin 12.2 GM/DL (12.0-16.0); Immature Granulocytes % 1.8 %; Immature Granulocytes Absolute 0.34 #; Lymphocytes # 0.3 10*3/uL (1.4-4.0); Lymphocytes % 1.7 % (21.3-54.2); Mean Corpuscular HGB Conc 32.4 GM/DL (32-36); Mean Corpuscular Hemoglobin 29 PG (27-34); Mean Corpuscular Volume 88.9 FL (87-102); Mean Platelet Volume 11.6 FL (9.6-12.0); Monocytes # 0.7 10*3/uL (0.11-0.8); Monocytes % 3.7 % (1.7-12.7); Neutrophils # 17.8 10*3/uL (1.4-7.4); Neutrophils % 92.5 % (38.7-73.9); Platelet Count 103 T/CUMM (130-400); Red Blood Count 4.24 MC/CUMM (3.8-5.5); Red Cell Distribution Width 17.7 % (9.3-17.3); White Blood Count 19.2 T/CUMM (4-12)
[2018-06-05 04:18] LABS: Calcium 7.7 MG/DL (8.5-10.1); Osmolality,Calculated 305.1 MOS/KG (273-304); Potassium 4.2 MMOL/L (3.5-5.1)
[2018-06-05] MEDS: PROPOFOL 1,000 MG/100 ML BOTTLE IV SCH ×3 (04:18→22:55)
[2018-06-05 04:43] LABS: Band Neutrophils 3 % (0-10); Hypochromasia 1+; Platelet Estimate Decreased; Segmented Neutrophils 91 % (50-85); Total Cells Counted 100
[2018-06-05] MEDS: INSULIN LISPRO 100 UNIT/ML SUBCUT SCH ×4 (05:36→23:28)
[2018-06-05] MEDS: methylPREDNISolone SOD SUC 40 MG/1 ML VIAL IV SCH ×2 (05:36→17:05)
[2018-06-05] MEDS: LEVOTHYROXINE 50 MCG TABLET PO SCH (05:36)
[2018-06-05] MEDS ORDERED: FUROSEMIDE 40 MG/4 ML VIAL IV ONE (07:24)
[2018-06-05] MEDS: MEROPENEM 1,000 MG in SODIUM CHLORIDE 0.9% 100 ML IV SCH ×2 (08:33→20:19)
[2018-06-05] MEDS: PANTOPRAZOLE 40 MG VIAL IV SCH (08:33)
[2018-06-05] MEDS: FLUCONAZOLE 100 MG TABLET PER TUBE SCH (08:34)
[2018-06-05] MEDS: APIXABAN 5 MG TABLET PO SCH ×2 (08:34→20:19)
[2018-06-05] MEDS: MULTIVITAMIN LIQUID (CENTRUM) 60 ML BOTTLE PER TUBE SCH (08:34)
[2018-06-05] MEDS: DRONEDARONE 400 MG TABLET PO SCH ×2 (08:34→17:05)
[2018-06-05] MEDS: busPIRone 5 MG TABLET PO SCH ×2 (08:34→20:19)
[2018-06-05] MEDS: ASPIRIN CHEW 81 MG TABLET PO SCH (08:34)
[2018-06-05] MEDS: glipiZIDE 5 MG TABLET PER TUBE SCH ×2 (08:34→17:05)
[2018-06-05] MEDS: ATORVASTATIN 40 MG TABLET PO SCH (08:35)
[2018-06-05] MEDS: NYSTATIN POWDER 15 GM BOTTLE TOP SCH ×2 (09:15→20:19)
[2018-06-05] MEDS: DICLOFENAC 1% GEL 100 GM TUBE TOP SCH ×4 (11:15→20:19)
[2018-06-05] MEDS: ZINC OXIDE PASTE 113 GM TUBE TOP SCH ×2 (11:15→20:19)
[2018-06-05] MEDS: VANCOMYCIN INJ 750 MG in SODIUM CHLORIDE 0.9% 250 ML IV SCH (12:00)
[2018-06-06] MEDS: guaiFENesin 200 MG/10 ML UDCUP PER TUBE SCH ×6 (01:03→21:14)
[2018-06-06] MEDS: ALBUTEROL/IPRATROPIUM 3 ML NEB RESP TX SCH ×5 (02:27→19:51)
[2018-06-06 03:42] LABS: ABG Base Excess -1.1 MMOL/L (-2.5-2.5); ABG HCO3 23.5 MMOL/L (20-26); ABG Oxygen Saturation 95.3 % (95-100); ABG PCO2 58.8 MM HG (35-48); ABG PH 7.274 (7.35-7.45); ABG PO2 81.8 MM HG (80-95); ABG TCO2 24.2 MMOL/L (23-27)
[2018-06-06 03:43] LABS: Allen Test Positive; Pt O2 Delivery Device Ventilator
[2018-06-06 04:43] LABS: Basophils # 0.1 10*3/uL (0.0-0.2); Basophils % 0.2 % (0.0-0.8); Eosinophils % 0.1 % (0.00-10.9); Hematocrit 40.9 VOL% (35.7-47.0); Hemoglobin 13.4 GM/DL (12.0-16.0); Immature Granulocytes % 1.8 %; Immature Granulocytes Absolute 0.37 #; Lymphocytes # 0.3 10*3/uL (1.4-4.0); Lymphocytes % 1.3 % (21.3-54.2); Mean Corpuscular HGB Conc 32.8 GM/DL (32-36); Mean Corpuscular Hemoglobin 30 PG (27-34); Mean Corpuscular Volume 90.7 FL (87-102); Mean Platelet Volume 12.2 FL (9.6-12.0); Monocytes # 0.9 10*3/uL (0.11-0.8); Monocytes % 4.2 % (1.7-12.7); Neutrophils # 19.5 10*3/uL (1.4-7.4); Neutrophils % 92.4 % (38.7-73.9); Platelet Count 104 T/CUMM (130-400); Red Blood Count 4.51 MC/CUMM (3.8-5.5); Red Cell Distribution Width 17.8 % (9.3-17.3); White Blood Count 21.1 T/CUMM (4-12)
[2018-06-06 04:54] LABS: Calcium 7.9 MG/DL (8.5-10.1); Osmolality,Calculated 309.1 MOS/KG (273-304); Potassium 4.2 MMOL/L (3.5-5.1)
[2018-06-06 05:09] LABS: Hypochromasia Slight; Lymphocytes 2 % (20-55); Platelet Estimate Decreased; Segmented Neutrophils 95 % (50-85); Total Cells Counted 100
[2018-06-06] MEDS: methylPREDNISolone SOD SUC 40 MG/1 ML VIAL IV SCH ×2 (05:40→17:23)
[2018-06-06] MEDS: INSULIN LISPRO 100 UNIT/ML SUBCUT SCH ×3 (05:40→17:26)
[2018-06-06] MEDS: LEVOTHYROXINE 50 MCG TABLET PO SCH (05:40)
[2018-06-06] MEDS: busPIRone 5 MG TABLET PO SCH ×2 (08:52→21:13)
[2018-06-06] MEDS: glipiZIDE 5 MG TABLET PER TUBE SCH ×2 (08:52→17:22)
[2018-06-06] MEDS: DRONEDARONE 400 MG TABLET PO SCH ×2 (08:52→17:22)
[2018-06-06] MEDS: ATORVASTATIN 40 MG TABLET PO SCH (08:52)
[2018-06-06] MEDS: FLUCONAZOLE 100 MG TABLET PER TUBE SCH (08:52)
[2018-06-06] MEDS: MEROPENEM 1,000 MG in SODIUM CHLORIDE 0.9% 100 ML IV SCH ×2 (08:53→21:14)
[2018-06-06] MEDS: ASPIRIN CHEW 81 MG TABLET PO SCH (08:53)
[2018-06-06] MEDS: MULTIVITAMIN LIQUID (CENTRUM) 60 ML BOTTLE PER TUBE SCH (08:53)
[2018-06-06] MEDS: APIXABAN 5 MG TABLET PO SCH ×2 (08:53→21:13)
[2018-06-06] MEDS: NYSTATIN POWDER 15 GM BOTTLE TOP SCH ×2 (08:54→21:13)
[2018-06-06] MEDS: DICLOFENAC 1% GEL 100 GM TUBE TOP SCH ×4 (08:54→21:13)
[2018-06-06] MEDS: PANTOPRAZOLE 40 MG VIAL IV SCH (08:54)
[2018-06-06] MEDS: ZINC OXIDE PASTE 113 GM TUBE TOP SCH ×2 (08:54→21:13)
[2018-06-06] MEDS: PROPOFOL 1,000 MG/100 ML BOTTLE IV SCH ×3 (09:07→21:12)
[2018-06-06] MEDS: VANCOMYCIN INJ 750 MG in SODIUM CHLORIDE 0.9% 250 ML IV SCH (11:57)
[2018-06-06] MEDS: fentaNYL INJ 1,250 MCG in SODIUM CHLORIDE 0.9% 225 ML IV PRN (20:18)
[2018-06-07] MEDS: INSULIN LISPRO 100 UNIT/ML SUBCUT SCH ×4 (00:08→18:21)
[2018-06-07] MEDS: ALBUTEROL/IPRATROPIUM 3 ML NEB RESP TX SCH ×7 (00:20→22:50)
[2018-06-07] MEDS: guaiFENesin 200 MG/10 ML UDCUP PER TUBE SCH ×6 (02:41→21:36)
[2018-06-07 04:28] LABS: ABG Base Excess 1.1 MMOL/L (-2.5-2.5); ABG HCO3 25.3 MMOL/L (20-26); ABG Oxygen Saturation 96.7 % (95-100); ABG PCO2 51.7 MM HG (35-48); ABG PH 7.338 (7.35-7.45); ABG PO2 85.6 MM HG (80-95); ABG TCO2 24.7 MMOL/L (23-27); Allen Test Positive; Pt O2 Delivery Device Ventilator
[2018-06-07 05:25] LABS: Calcium 7.9 MG/DL (8.5-10.1); Osmolality,Calculated 306.1 MOS/KG (273-304); Potassium 4.2 MMOL/L (3.5-5.1)
[2018-06-07 05:26] LABS: Basophils % 0.2 % (0.0-0.8); Eosinophils % 0.1 % (0.00-10.9); Hematocrit 36.5 VOL% (35.7-47.0); Hemoglobin 11.8 GM/DL (12.0-16.0); Immature Granulocytes % 1.6 %; Immature Granulocytes Absolute 0.28 #; Lymphocytes # 0.3 10*3/uL (1.4-4.0); Lymphocytes % 1.6 % (21.3-54.2); Mean Corpuscular HGB Conc 32.3 GM/DL (32-36); Mean Corpuscular Hemoglobin 29 PG (27-34); Mean Corpuscular Volume 90.1 FL (87-102); Mean Platelet Volume 12.4 FL (9.6-12.0); Monocytes # 0.6 10*3/uL (0.11-0.8); Monocytes % 3.3 % (1.7-12.7); Neutrophils # 16.6 10*3/uL (1.4-7.4); Neutrophils % 93.2 % (38.7-73.9); Platelet Count 88 T/CUMM (130-400); Red Blood Count 4.05 MC/CUMM (3.8-5.5); Red Cell Distribution Width 17.3 % (9.3-17.3); White Blood Count 17.8 T/CUMM (4-12)
[2018-06-07 05:31] LABS: Band Neutrophils 1 % (0-10); Hypochromasia 1+; Lymphocytes 1 % (20-55); Ovalocytes Slight; Platelet Estimate Decreased; Prealbumin 27.6 MG/DL (20-40); Segmented Neutrophils 95 % (50-85); Total Cells Counted 100
[2018-06-07] MEDS: LEVOTHYROXINE 50 MCG TABLET PO SCH (06:24)
[2018-06-07] MEDS: methylPREDNISolone SOD SUC 40 MG/1 ML VIAL IV SCH ×2 (06:24→18:06)
[2018-06-07] MEDS: fentaNYL INJ 1,250 MCG in SODIUM CHLORIDE 0.9% 225 ML IV PRN ×2 (07:26→18:22)
[2018-06-07] MEDS: PROPOFOL 1,000 MG/100 ML BOTTLE IV SCH ×2 (07:27→19:00)
[2018-06-07] MEDS: APIXABAN 5 MG TABLET PO SCH ×2 (08:13→21:36)
[2018-06-07] MEDS: MEROPENEM 1,000 MG in SODIUM CHLORIDE 0.9% 100 ML IV SCH ×2 (08:13→21:37)
[2018-06-07] MEDS: PANTOPRAZOLE 40 MG VIAL IV SCH (08:13)
[2018-06-07] MEDS: glipiZIDE 5 MG TABLET PER TUBE SCH ×2 (08:13→17:04)
[2018-06-07] MEDS: busPIRone 5 MG TABLET PO SCH ×2 (08:13→21:35)
[2018-06-07] MEDS: ASPIRIN CHEW 81 MG TABLET PO SCH (08:13)
[2018-06-07] MEDS: ATORVASTATIN 40 MG TABLET PO SCH (08:14)
[2018-06-07] MEDS: DRONEDARONE 400 MG TABLET PO SCH ×2 (08:22→17:05)
[2018-06-07] MEDS: ZINC OXIDE PASTE 113 GM TUBE TOP SCH ×2 (08:22→21:37)
[2018-06-07] MEDS: MULTIVITAMIN LIQUID (CENTRUM) 60 ML BOTTLE PER TUBE SCH (08:22)
[2018-06-07] MEDS: FLUCONAZOLE 100 MG TABLET PER TUBE SCH (08:22)
[2018-06-07] MEDS: NYSTATIN POWDER 15 GM BOTTLE TOP SCH ×2 (08:23→21:37)
[2018-06-07] MEDS: DICLOFENAC 1% GEL 100 GM TUBE TOP SCH ×4 (08:23→21:37)
[2018-06-07] MEDS ORDERED: FUROSEMIDE 40 MG/4 ML VIAL IV ONE (08:28)
[2018-06-07] MEDS ORDERED: CALCIUM GLUCONATE 2,000 MG in SODIUM CHLORIDE 0.9% 100 ML IV ONE (08:45)
[2018-06-07] MEDS: VANCOMYCIN INJ 750 MG in SODIUM CHLORIDE 0.9% 250 ML IV SCH (12:20)
[2018-06-07] MEDS: DILTIAZEM 30 MG TABLET PO SCH ×3 (12:20→21:35)
[2018-06-08] MEDS: INSULIN LISPRO 100 UNIT/ML SUBCUT SCH ×4 (00:18→18:05)
[2018-06-08] MEDS: guaiFENesin 200 MG/10 ML UDCUP PER TUBE SCH ×6 (01:52→21:37)
[2018-06-08] MEDS: ALBUTEROL/IPRATROPIUM 3 ML NEB RESP TX SCH ×6 (02:49→22:50)
[2018-06-08] MEDS: PROPOFOL 1,000 MG/100 ML BOTTLE IV SCH ×3 (02:50→22:23)
[2018-06-08 04:36] LABS: ABG Base Excess 0.7 MMOL/L (-2.5-2.5); ABG Oxygen Saturation 97.2 % (95-100); ABG PCO2 57.5 MM HG (35-48); ABG PH 7.302 (7.35-7.45); ABG PO2 95.4 MM HG (80-95); ABG TCO2 25.4 MMOL/L (23-27); Allen Test Positive; Pt O2 Delivery Device Ventilator
[2018-06-08 05:13] LABS: Basophils % 0.1 % (0.0-0.8); Eosinophils % 0.1 % (0.00-10.9); Hematocrit 35.6 VOL% (35.7-47.0); Hemoglobin 11.6 GM/DL (12.0-16.0); Immature Granulocytes Absolute 0.34 #; Lymphocytes # 0.2 10*3/uL (1.4-4.0); Lymphocytes % 1.2 % (21.3-54.2); Mean Corpuscular HGB Conc 32.6 GM/DL (32-36); Mean Corpuscular Hemoglobin 30 PG (27-34); Mean Corpuscular Volume 90.8 FL (87-102); Monocytes # 0.6 10*3/uL (0.11-0.8); Monocytes % 3.4 % (1.7-12.7); Neutrophils % 93.2 % (38.7-73.9); Red Blood Count 3.92 MC/CUMM (3.8-5.5); Red Cell Distribution Width 17.2 % (9.3-17.3); White Blood Count 17.1 T/CUMM (4-12)
[2018-06-08 05:22] LABS: Platelet Count 90 T/CUMM (130-400)
[2018-06-08 05:43] LABS: Osmolality,Calculated 304.4 MOS/KG (273-304); Potassium 4.5 MMOL/L (3.5-5.1)
[2018-06-08 05:49] LABS: Hypochromasia Slight; Platelet Estimate Decreased; Segmented Neutrophils 99 % (50-85); Total Cells Counted 100
[2018-06-08] MEDS: LEVOTHYROXINE 50 MCG TABLET PO SCH (06:08)
[2018-06-08] MEDS: methylPREDNISolone SOD SUC 40 MG/1 ML VIAL IV SCH ×2 (06:09→17:15)
[2018-06-08] MEDS: FLUCONAZOLE 100 MG TABLET PER TUBE SCH (09:15)
[2018-06-08] MEDS: ASPIRIN CHEW 81 MG TABLET PO SCH (09:15)
[2018-06-08] MEDS: MEROPENEM 1,000 MG in SODIUM CHLORIDE 0.9% 100 ML IV SCH ×2 (09:15→21:39)
[2018-06-08] MEDS: DILTIAZEM 30 MG TABLET PO SCH ×4 (09:15→21:36)
[2018-06-08] MEDS: MULTIVITAMIN LIQUID (CENTRUM) 60 ML BOTTLE PER TUBE SCH (09:15)
[2018-06-08] MEDS: busPIRone 5 MG TABLET PO SCH ×2 (09:15→21:37)
[2018-06-08] MEDS: DRONEDARONE 400 MG TABLET PO SCH ×2 (09:15→17:15)
[2018-06-08] MEDS: APIXABAN 5 MG TABLET PO SCH ×2 (09:15→21:37)
[2018-06-08] MEDS: PANTOPRAZOLE 40 MG VIAL IV SCH (09:15)
[2018-06-08] MEDS: ATORVASTATIN 40 MG TABLET PO SCH (09:15)
[2018-06-08] MEDS: glipiZIDE 5 MG TABLET PER TUBE SCH ×2 (09:15→17:15)
[2018-06-08] MEDS: DICLOFENAC 1% GEL 100 GM TUBE TOP SCH ×4 (09:30→21:38)
[2018-06-08] MEDS: NYSTATIN POWDER 15 GM BOTTLE TOP SCH ×2 (09:30→21:38)
[2018-06-08] MEDS: ZINC OXIDE PASTE 113 GM TUBE TOP SCH ×2 (11:50→21:38)
[2018-06-08] MEDS: VANCOMYCIN INJ 750 MG in SODIUM CHLORIDE 0.9% 250 ML IV SCH (12:00)
[2018-06-08] MEDS ORDERED: TOBRAMYCIN/DEXAMETHASONE 0.3%-0.1% OPH SUSP 2.5 ML BOTTLE BOTH EYES SCH (13:00)
[2018-06-08] MEDS ORDERED: VANCOMYCIN INJ 500 MG in SODIUM CHLORIDE 0.9% 100 ML IV SCH (15:00)
[2018-06-08] MEDS: fentaNYL INJ 1,250 MCG in SODIUM CHLORIDE 0.9% 225 ML IV PRN (18:50)
[2018-06-09] MEDS: INSULIN LISPRO 100 UNIT/ML SUBCUT SCH ×4 (00:06→18:05)
[2018-06-09] MEDS: guaiFENesin 200 MG/10 ML UDCUP PER TUBE SCH ×6 (01:24→21:44)
[2018-06-09] MEDS: ALBUTEROL/IPRATROPIUM 3 ML NEB RESP TX SCH ×6 (02:55→23:50)
[2018-06-09 03:54] LABS: ABG Base Excess 0.4 MMOL/L (-2.5-2.5); ABG HCO3 24.8 MMOL/L (20-26); ABG Oxygen Saturation 96.9 % (95-100); ABG PCO2 60.5 MM HG (35-48); ABG PH 7.282 (7.35-7.45); ABG PO2 94.1 MM HG (80-95); ABG TCO2 25.8 MMOL/L (23-27); Allen Test Positive; Pt O2 Delivery Device Ventilator
[2018-06-09 05:51] LABS: Basophils % 0.2 % (0.0-0.8); Eosinophils % 0.1 % (0.00-10.9); Hematocrit 35.5 VOL% (35.7-47.0); Hemoglobin 11.3 GM/DL (12.0-16.0); Immature Granulocytes % 1.9 %; Immature Granulocytes Absolute 0.34 #; Lymphocytes # 0.2 10*3/uL (1.4-4.0); Lymphocytes % 1.2 % (21.3-54.2); Mean Corpuscular HGB Conc 31.8 GM/DL (32-36); Mean Corpuscular Hemoglobin 29 PG (27-34); Mean Corpuscular Volume 91.7 FL (87-102); Mean Platelet Volume 12.2 FL (9.6-12.0); Monocytes # 0.7 10*3/uL (0.11-0.8); NRBC # 0.02 10*3/uL; Neutrophils # 16.5 10*3/uL (1.4-7.4); Neutrophils % 92.6 % (38.7-73.9); Red Blood Count 3.87 MC/CUMM (3.8-5.5); Red Cell Distribution Width 17.2 % (9.3-17.3); White Blood Count 17.9 T/CUMM (4-12)
[2018-06-09 05:54] LABS: Platelet Count 93 T/CUMM (130-400)
[2018-06-09] MEDS: methylPREDNISolone SOD SUC 40 MG/1 ML VIAL IV SCH ×2 (05:55→17:30)
[2018-06-09] MEDS: LEVOTHYROXINE 50 MCG TABLET PO SCH (05:57)
[2018-06-09 06:08] LABS: Hypochromasia 1+; Ovalocytes Slight; Platelet Estimate Decreased; Segmented Neutrophils 96 % (50-85); Total Cells Counted 100
[2018-06-09 06:14] LABS: Calcium 8.2 MG/DL (8.5-10.1); Osmolality,Calculated 308.3 MOS/KG (273-304); Potassium 4.7 MMOL/L (3.5-5.1)
[2018-06-09] MEDS ORDERED: FUROSEMIDE 40 MG/4 ML VIAL IV ONE (06:29)
[2018-06-09] MEDS: DRONEDARONE 400 MG TABLET PO SCH ×2 (07:45→17:30)
[2018-06-09] MEDS: glipiZIDE 5 MG TABLET PER TUBE SCH ×2 (07:45→17:30)
[2018-06-09] MEDS: PROPOFOL 1,000 MG/100 ML BOTTLE IV SCH ×2 (07:50→20:32)
[2018-06-09] MEDS: DICLOFENAC 1% GEL 100 GM TUBE TOP SCH ×4 (09:15→21:46)
[2018-06-09] MEDS: ZINC OXIDE PASTE 113 GM TUBE TOP SCH ×2 (09:15→21:45)
[2018-06-09] MEDS: NYSTATIN POWDER 15 GM BOTTLE TOP SCH ×2 (09:15→21:46)
[2018-06-09] MEDS: ASPIRIN CHEW 81 MG TABLET PO SCH (09:45)
[2018-06-09] MEDS: MULTIVITAMIN LIQUID (CENTRUM) 60 ML BOTTLE PER TUBE SCH (09:45)
[2018-06-09] MEDS: ATORVASTATIN 40 MG TABLET PO SCH (09:45)
[2018-06-09] MEDS: DILTIAZEM 30 MG TABLET PO SCH ×4 (09:45→21:44)
[2018-06-09] MEDS: busPIRone 5 MG TABLET PO SCH ×2 (09:45→21:44)
[2018-06-09] MEDS: PANTOPRAZOLE 40 MG VIAL IV SCH (09:45)
[2018-06-09] MEDS: APIXABAN 5 MG TABLET PO SCH ×2 (09:45→21:44)
[2018-06-09] MEDS: MEROPENEM 1,000 MG in SODIUM CHLORIDE 0.9% 100 ML IV SCH ×2 (10:23→21:46)
[2018-06-09] MEDS: FLUCONAZOLE 100 MG TABLET PER TUBE SCH (13:40)
[2018-06-10] MEDS: INSULIN LISPRO 100 UNIT/ML SUBCUT SCH ×4 (00:12→18:11)
[2018-06-10] MEDS: guaiFENesin 200 MG/10 ML UDCUP PER TUBE SCH ×6 (01:33→21:30)
[2018-06-10] MEDS: ALBUTEROL/IPRATROPIUM 3 ML NEB RESP TX SCH ×6 (04:16→23:31)
[2018-06-10 04:22] LABS: ABG Base Excess 0.9 MMOL/L (-2.5-2.5); ABG HCO3 25.2 MMOL/L (20-26); ABG Oxygen Saturation 96.9 % (95-100); ABG PCO2 51.3 MM HG (35-48); ABG PH 7.338 (7.35-7.45); ABG PO2 90.2 MM HG (80-95); ABG TCO2 24.5 MMOL/L (23-27); Allen Test Positive; Pt O2 Delivery Device Ventilator
[2018-06-10 06:12] LABS: Basophils % 0.2 % (0.0-0.8); Hematocrit 35.4 VOL% (35.7-47.0); Hemoglobin 11.6 GM/DL (12.0-16.0); Immature Granulocytes % 2.3 %; Lymphocytes # 0.3 10*3/uL (1.4-4.0); Lymphocytes % 1.1 % (21.3-54.2); Mean Corpuscular HGB Conc 32.8 GM/DL (32-36); Mean Corpuscular Hemoglobin 29 PG (27-34); Mean Corpuscular Volume 89.8 FL (87-102); Monocytes # 0.9 10*3/uL (0.11-0.8); Monocytes % 4.2 % (1.7-12.7); NRBC # 0.02 10*3/uL; Neutrophils # 20.4 10*3/uL (1.4-7.4); Neutrophils % 92.2 % (38.7-73.9); Platelet Count 106 T/CUMM (130-400); Red Blood Count 3.94 MC/CUMM (3.8-5.5); Red Cell Distribution Width 17.3 % (9.3-17.3); White Blood Count 22.1 T/CUMM (4-12)
[2018-06-10 06:37] LABS: Calcium 8.4 MG/DL (8.5-10.1); Osmolality,Calculated 308.5 MOS/KG (273-304); Potassium 4.5 MMOL/L (3.5-5.1)
[2018-06-10 06:38] LABS: Band Neutrophils 1 % (0-10); Hypochromasia 1+; Lymphocytes 2 % (20-55); Ovalocytes Slight; Platelet Estimate Decreased; Segmented Neutrophils 92 % (50-85); Total Cells Counted 100
[2018-06-10] MEDS: methylPREDNISolone SOD SUC 40 MG/1 ML VIAL IV SCH ×2 (06:43→18:12)
[2018-06-10] MEDS: LEVOTHYROXINE 50 MCG TABLET PO SCH (06:45)
[2018-06-10] MEDS: DRONEDARONE 400 MG TABLET PO SCH ×2 (10:16→18:16)
[2018-06-10] MEDS: DILTIAZEM 30 MG TABLET PO SCH ×4 (10:17→22:01)
[2018-06-10] MEDS: APIXABAN 5 MG TABLET PO SCH ×2 (10:17→21:41)
[2018-06-10] MEDS: ASPIRIN CHEW 81 MG TABLET PO SCH (10:18)
[2018-06-10] MEDS: FLUCONAZOLE 100 MG TABLET PER TUBE SCH (10:18)
[2018-06-10] MEDS: glipiZIDE 5 MG TABLET PER TUBE SCH ×2 (10:18→16:02)
[2018-06-10] MEDS: ATORVASTATIN 40 MG TABLET PO SCH (10:19)
[2018-06-10] MEDS: busPIRone 5 MG TABLET PO SCH ×2 (10:19→22:00)
[2018-06-10] MEDS: MULTIVITAMIN LIQUID (CENTRUM) 60 ML BOTTLE PER TUBE SCH (10:20)
[2018-06-10] MEDS: ALBUMIN 25% 25 GM in PREMIX 1 EACH IV SCH ×2 (10:24→16:02)
[2018-06-10] MEDS: MEROPENEM 1,000 MG in SODIUM CHLORIDE 0.9% 100 ML IV SCH ×2 (10:44→22:01)
[2018-06-10] MEDS: NYSTATIN POWDER 15 GM BOTTLE TOP SCH ×2 (10:49→22:01)
[2018-06-10] MEDS: DICLOFENAC 1% GEL 100 GM TUBE TOP SCH ×4 (10:49→22:01)
[2018-06-10] MEDS: ZINC OXIDE PASTE 113 GM TUBE TOP SCH ×2 (10:49→22:01)
[2018-06-10] MEDS: PANTOPRAZOLE 40 MG VIAL IV SCH (11:07)
[2018-06-10] MEDS: PROPOFOL 1,000 MG/100 ML BOTTLE IV SCH (16:40)
[2018-06-10] MEDS ORDERED: SODIUM CHLORIDE 0.9% 1,000 ML IV PRN ×2 (20:09→22:08)
[2018-06-10 20:34] LABS: Hematocrit 20.8 VOL% (35.7-47.0)
[2018-06-10 20:39] LABS: Hemoglobin 6.7 GM/DL (12.0-16.0)
[2018-06-10 20:44] LABS: ABG Base Excess 1.6 MMOL/L (-2.5-2.5); ABG HCO3 25.9 MMOL/L (20-26); ABG Oxygen Saturation 99.9 % (95-100); ABG PCO2 51.8 MM HG (35-48); ABG PH 7.338 (7.35-7.45); ABG TCO2 26.5 MMOL/L (23-27); Allen Test Positive; Pt O2 Delivery Device Ventilator
[2018-06-10] MEDS ORDERED: FUROSEMIDE 40 MG/4 ML VIAL IV ONE (21:21)
[2018-06-11] MEDS: INSULIN LISPRO 100 UNIT/ML SUBCUT SCH ×5 (00:25→23:09)
[2018-06-11] MEDS: fentaNYL INJ 1,250 MCG in SODIUM CHLORIDE 0.9% 225 ML IV PRN (00:27)
[2018-06-11] MEDS: PROPOFOL 1,000 MG/100 ML BOTTLE IV SCH ×5 (01:28→23:32)
[2018-06-11] MEDS: guaiFENesin 200 MG/10 ML UDCUP PER TUBE SCH ×6 (01:41→21:18)
[2018-06-11] MEDS: ALBUTEROL/IPRATROPIUM 3 ML NEB RESP TX SCH ×6 (03:13→23:29)
[2018-06-11 03:59] LABS: ABG HCO3 25.3 MMOL/L (20-26); ABG Oxygen Saturation 98.6 % (95-100); ABG PCO2 55.1 MM HG (35-48); ABG TCO2 25.2 MMOL/L (23-27); Allen Test Positive; Pt O2 Delivery Device Ventilator
[2018-06-11 05:44] LABS: Basophils % 0.2 % (0.0-0.8); Eosinophils % 0.1 % (0.00-10.9); Hematocrit 35.8 VOL% (35.7-47.0); Hemoglobin 12.1 GM/DL (12.0-16.0); Immature Granulocytes % 2.7 %; Lymphocytes # 0.2 10*3/uL (1.4-4.0); Lymphocytes % 1.5 % (21.3-54.2); Mean Corpuscular HGB Conc 33.8 GM/DL (32-36); Mean Corpuscular Hemoglobin 30 PG (27-34); Mean Corpuscular Volume 89.5 FL (87-102); Mean Platelet Volume 13.5 FL (9.6-12.0); Monocytes # 0.6 10*3/uL (0.11-0.8); Monocytes % 5.3 % (1.7-12.7); NRBC # 0.02 10*3/uL; Neutrophils % 90.2 % (38.7-73.9); Red Cell Distribution Width 14.4 % (9.3-17.3)
[2018-06-11 05:47] LABS: PT Patient Result 11.3 SECS
[2018-06-11 05:50] LABS: Platelet Count 57 T/CUMM (130-400)
[2018-06-11 05:57] LABS: Albumin 2.9 G/DL (3.4-5.0); Bilirubin,Total 0.9 MG/DL (0.2-1.0); Calcium 8.3 MG/DL (8.5-10.1); Osmolality,Calculated 312.4 MOS/KG (273-304); Potassium 4.1 MMOL/L (3.5-5.1)
[2018-06-11 06:03] LABS: Band Neutrophils 3 % (0-10); Hypochromasia 1+; Lymphocytes 1 % (20-55); Platelet Estimate Decreased; Segmented Neutrophils 92 % (50-85)
[2018-06-11 06:04] LABS: Total Cells Counted 100
[2018-06-11] MEDS: methylPREDNISolone SOD SUC 40 MG/1 ML VIAL IV SCH ×2 (07:23→17:00)
[2018-06-11] MEDS: glipiZIDE 5 MG TABLET PER TUBE SCH ×2 (07:23→16:07)
[2018-06-11] MEDS: LEVOTHYROXINE 50 MCG TABLET PO SCH (07:23)
[2018-06-11] MEDS: ATORVASTATIN 40 MG TABLET PO SCH (09:05)
[2018-06-11] MEDS: busPIRone 5 MG TABLET PO SCH ×2 (09:06→21:18)
[2018-06-11] MEDS: DILTIAZEM 30 MG TABLET PO SCH ×4 (09:06→21:18)
[2018-06-11] MEDS: DRONEDARONE 400 MG TABLET PO SCH ×2 (09:06→16:07)
[2018-06-11] MEDS: FLUCONAZOLE 100 MG TABLET PER TUBE SCH (09:06)
[2018-06-11] MEDS: ASPIRIN CHEW 81 MG TABLET PO SCH (09:06)
[2018-06-11] MEDS: MEROPENEM 1,000 MG in SODIUM CHLORIDE 0.9% 100 ML IV SCH (09:07)
[2018-06-11] MEDS: MULTIVITAMIN LIQUID (CENTRUM) 60 ML BOTTLE PER TUBE SCH (09:07)
[2018-06-11] MEDS: PANTOPRAZOLE 40 MG VIAL IV SCH (09:09)
[2018-06-11] MEDS: ZINC OXIDE PASTE 113 GM TUBE TOP SCH ×2 (09:34→21:18)
[2018-06-11] MEDS: NYSTATIN POWDER 15 GM BOTTLE TOP SCH ×2 (09:35→21:18)
[2018-06-11] MEDS: DICLOFENAC 1% GEL 100 GM TUBE TOP SCH ×4 (09:35→21:18)
[2018-06-11] MEDS: ALBUMIN 25% 25 GM in PREMIX 1 EACH IV SCH ×2 (09:44→16:08)
[2018-06-12] MEDS: guaiFENesin 200 MG/10 ML UDCUP PER TUBE SCH ×6 (01:45→20:30)
[2018-06-12] MEDS: ALBUTEROL/IPRATROPIUM 3 ML NEB RESP TX SCH ×6 (03:05→23:20)
[2018-06-12] MEDS: PROPOFOL 1,000 MG/100 ML BOTTLE IV SCH ×3 (03:40→19:41)
[2018-06-12 04:07] LABS: ABG Base Excess 2.8 MMOL/L (-2.5-2.5); ABG HCO3 26.9 MMOL/L (20-26); ABG Oxygen Saturation 94.8 % (95-100); ABG PCO2 60.6 MM HG (35-48); ABG PH 7.308 (7.35-7.45); Allen Test Positive; Pt O2 Delivery Device Ventilator
[2018-06-12] MEDS: fentaNYL INJ 1,250 MCG in SODIUM CHLORIDE 0.9% 225 ML IV PRN (04:23)
[2018-06-12 05:21] LABS: Basophils % 0.2 % (0.0-0.8); Hematocrit 28.2 VOL% (35.7-47.0); Immature Granulocytes % 1.4 %; Immature Granulocytes Absolute 0.09 #; Lymphocytes # 0.1 10*3/uL (1.4-4.0); Lymphocytes % 2.1 % (21.3-54.2); Mean Corpuscular Hemoglobin 30 PG (27-34); Mean Corpuscular Volume 91.6 FL (87-102); Mean Platelet Volume 13.2 FL (9.6-12.0); Monocytes # 0.3 10*3/uL (0.11-0.8); Monocytes % 4.4 % (1.7-12.7); NRBC # 0.02 10*3/uL; Neutrophils # 6.1 10*3/uL (1.4-7.4); Neutrophils % 91.9 % (38.7-73.9); Red Cell Distribution Width 15.4 % (9.3-17.3)
[2018-06-12 05:22] LABS: Hemoglobin 9.3 GM/DL (12.0-16.0); Platelet Count 54 T/CUMM (130-400); Red Blood Count 3.08 MC/CUMM (3.8-5.5); White Blood Count 6.7 T/CUMM (4-12)
[2018-06-12 05:26] LABS: INR 1.2; PT Patient Result 13.1 SECS
[2018-06-12 05:44] LABS: Albumin 2.9 G/DL (3.4-5.0); Bilirubin,Total 0.8 MG/DL (0.2-1.0); Calcium 8.1 MG/DL (8.5-10.1); Osmolality,Calculated 315.1 MOS/KG (273-304); Potassium 4.2 MMOL/L (3.5-5.1); Total Protein 4.7 G/DL (6.4-8.3)
[2018-06-12 05:46] LABS: Eosinophils 1 % (0-10); Lymphocytes 8 % (20-55); Platelet Estimate Decreased; Polychromasia Few; Segmented Neutrophils 90 % (50-85); Total Cells Counted 100
[2018-06-12] MEDS: LEVOTHYROXINE 50 MCG TABLET PO SCH (05:50)
[2018-06-12] MEDS: methylPREDNISolone SOD SUC 40 MG/1 ML VIAL IV SCH ×3 (05:50→19:56)
[2018-06-12] MEDS: INSULIN LISPRO 100 UNIT/ML SUBCUT SCH ×3 (05:50→18:39)
[2018-06-12] MEDS: ASPIRIN CHEW 81 MG TABLET PO SCH (08:59)
[2018-06-12] MEDS: busPIRone 5 MG TABLET PO SCH ×2 (08:59→20:02)
[2018-06-12] MEDS: ATORVASTATIN 40 MG TABLET PO SCH (09:01)
[2018-06-12] MEDS: DILTIAZEM 30 MG TABLET PO SCH ×4 (09:01→20:02)
[2018-06-12] MEDS: glipiZIDE 5 MG TABLET PER TUBE SCH ×2 (09:04→17:07)
[2018-06-12] MEDS: MULTIVITAMIN LIQUID (CENTRUM) 60 ML BOTTLE PER TUBE SCH (09:05)
[2018-06-12] MEDS: DRONEDARONE 400 MG TABLET PO SCH ×2 (09:05→17:06)
[2018-06-12] MEDS: PANTOPRAZOLE 40 MG VIAL IV SCH (09:05)
[2018-06-12] MEDS: FUROSEMIDE 40 MG/4 ML VIAL IV SCH ×2 (09:18→15:05)
[2018-06-12] MEDS: NYSTATIN POWDER 15 GM BOTTLE TOP SCH ×2 (09:38→20:25)
[2018-06-12] MEDS: DICLOFENAC 1% GEL 100 GM TUBE TOP SCH ×4 (09:38→20:26)
[2018-06-12] MEDS: ZINC OXIDE PASTE 113 GM TUBE TOP SCH ×2 (09:38→20:25)
[2018-06-12] MEDS: cefTRIAXone 1,000 MG in SYRINGE 1 EACH IV SCH (15:05)
[2018-06-13] MEDS: INSULIN LISPRO 100 UNIT/ML SUBCUT SCH ×4 (00:03→18:10)
[2018-06-13] MEDS ORDERED: MORPHINE 4 MG/1 ML VIAL ONE (01:30)
[2018-06-13] MEDS: MORPHINE 4 MG/1 ML VIAL IV PRN (01:33)
[2018-06-13] MEDS: ALBUTEROL/IPRATROPIUM 3 ML NEB RESP TX SCH ×6 (02:35→23:14)
[2018-06-13 04:26] LABS: ABG Base Excess 7.3 MMOL/L (-2.5-2.5); ABG Oxygen Saturation 94.5 % (95-100); ABG PCO2 49.9 MM HG (35-48); ABG PH 7.426 (7.35-7.45); ABG PO2 67.7 MM HG (80-95); ABG TCO2 29.8 MMOL/L (23-27); Allen Test Positive; Pt O2 Delivery Device Ventilator
[2018-06-13 05:20] LABS: Basophils % 0.1 % (0.0-0.8); Hematocrit 29.7 VOL% (35.7-47.0); Hemoglobin 9.8 GM/DL (12.0-16.0); Immature Granulocytes % 1.9 %; Immature Granulocytes Absolute 0.26 #; Lymphocytes # 0.2 10*3/uL (1.4-4.0); Lymphocytes % 1.2 % (21.3-54.2); Mean Corpuscular Hemoglobin 30 PG (27-34); Mean Corpuscular Volume 91.7 FL (87-102); Mean Platelet Volume 12.9 FL (9.6-12.0); Monocytes # 0.6 10*3/uL (0.11-0.8); NRBC # 0.02 10*3/uL; Neutrophils # 12.9 10*3/uL (1.4-7.4); Neutrophils % 92.8 % (38.7-73.9); Red Blood Count 3.24 MC/CUMM (3.8-5.5); Red Cell Distribution Width 15.7 % (9.3-17.3)
[2018-06-13 05:38] LABS: Albumin 2.7 G/DL (3.4-5.0); Bilirubin,Total 0.9 MG/DL (0.2-1.0); Calcium 8.3 MG/DL (8.5-10.1); Osmolality,Calculated 319.8 MOS/KG (273-304); Total Protein 4.7 G/DL (6.4-8.3)
[2018-06-13 05:41] LABS: Platelet Count 77 T/CUMM (130-400); White Blood Count 13.9 T/CUMM (4-12)
[2018-06-13 05:53] LABS: Lymphocytes 4 % (20-55); Platelet Estimate Decreased; Segmented Neutrophils 95 % (50-85); Total Cells Counted 100
[2018-06-13 05:54] LABS: Polychromasia Few
[2018-06-13] MEDS: LEVOTHYROXINE 50 MCG TABLET PO SCH (06:00)
[2018-06-13] MEDS: guaiFENesin 200 MG/10 ML UDCUP PER TUBE SCH ×5 (06:00→21:27)
[2018-06-13] MEDS: ATORVASTATIN 40 MG TABLET PO SCH (09:02)
[2018-06-13] MEDS: busPIRone 5 MG TABLET PO SCH ×2 (09:02→21:26)
[2018-06-13] MEDS: glipiZIDE 5 MG TABLET PER TUBE SCH ×2 (09:02→16:44)
[2018-06-13] MEDS: DILTIAZEM 30 MG TABLET PO SCH ×4 (09:03→21:26)
[2018-06-13] MEDS: ASPIRIN CHEW 81 MG TABLET PO SCH (09:03)
[2018-06-13] MEDS: FUROSEMIDE 40 MG/4 ML VIAL IV SCH ×2 (09:12→14:37)
[2018-06-13] MEDS: PANTOPRAZOLE 40 MG VIAL IV SCH (09:13)
[2018-06-13] MEDS: methylPREDNISolone SOD SUC 40 MG/1 ML VIAL IV SCH ×2 (09:13→21:24)
[2018-06-13] MEDS: DICLOFENAC 1% GEL 100 GM TUBE TOP SCH ×4 (09:15→21:27)
[2018-06-13] MEDS: NYSTATIN POWDER 15 GM BOTTLE TOP SCH ×2 (09:16→21:26)
[2018-06-13] MEDS: ALBUMIN 25% 25 GM in PREMIX 1 EACH IV SCH ×2 (09:24→16:44)
[2018-06-13] MEDS: DRONEDARONE 400 MG TABLET PO SCH ×2 (09:38→16:46)
[2018-06-13] MEDS: MULTIVITAMIN LIQUID (CENTRUM) 60 ML BOTTLE PER TUBE SCH (11:28)
[2018-06-13] MEDS: ZINC OXIDE PASTE 113 GM TUBE TOP SCH ×2 (11:29→21:26)
[2018-06-13] MEDS: cefTRIAXone 1,000 MG in SYRINGE 1 EACH IV SCH (14:02)
[2018-06-13] MEDS ORDERED: ZALEPLON 5 MG CAPSULE PO PRN (20:59)
[2018-06-14] MEDS: INSULIN LISPRO 100 UNIT/ML SUBCUT SCH ×4 (00:10→17:39)
[2018-06-14] MEDS: ALBUMIN 25% 25 GM in PREMIX 1 EACH IV SCH ×3 (01:04→18:14)
[2018-06-14] MEDS: MORPHINE 4 MG/1 ML VIAL IV PRN ×3 (01:05→19:31)
[2018-06-14] MEDS: guaiFENesin 200 MG/10 ML UDCUP PER TUBE SCH ×6 (01:05→22:18)
[2018-06-14] MEDS: ALBUTEROL/IPRATROPIUM 3 ML NEB RESP TX SCH ×4 (02:43→15:23)
[2018-06-14 04:11] LABS: ABG Base Excess 10.1 MMOL/L (-2.5-2.5); ABG HCO3 33.8 MMOL/L (20-26); ABG Oxygen Saturation 94.4 % (95-100); ABG PCO2 48.9 MM HG (35-48); ABG PH 7.465 (7.35-7.45); ABG PO2 66.8 MM HG (80-95); ABG TCO2 32.6 MMOL/L (23-27); Allen Test Positive; Pt O2 Delivery Device Ventilator
[2018-06-14 05:03] LABS: Basophils % 0.2 % (0.0-0.8); Hematocrit 23.5 VOL% (35.7-47.0); Hemoglobin 7.6 GM/DL (12.0-16.0); Immature Granulocytes % 1.9 %; Immature Granulocytes Absolute 0.25 #; Lymphocytes # 0.2 10*3/uL (1.4-4.0); Lymphocytes % 1.5 % (21.3-54.2); Mean Corpuscular HGB Conc 32.3 GM/DL (32-36); Mean Corpuscular Hemoglobin 30 PG (27-34); Mean Platelet Volume 13.7 FL (9.6-12.0); Monocytes # 0.4 10*3/uL (0.11-0.8); Monocytes % 2.7 % (1.7-12.7); NRBC # 0.04 10*3/uL; Neutrophils # 12.5 10*3/uL (1.4-7.4); Neutrophils % 93.7 % (38.7-73.9); Red Cell Distribution Width 16.3 % (9.3-17.3); White Blood Count 13.3 T/CUMM (4-12)
[2018-06-14 05:05] LABS: Platelet Count 76 T/CUMM (130-400)
[2018-06-14 05:18] LABS: Albumin 3.4 G/DL (3.4-5.0); Bilirubin,Total 1.9 MG/DL (0.2-1.0); Calcium 8.4 MG/DL (8.5-10.1); Osmolality,Calculated 319.6 MOS/KG (273-304); Prealbumin 17.1 MG/DL (20-40); Total Protein 5.2 G/DL (6.4-8.3)
[2018-06-14 05:25] LABS: Band Neutrophils 4 % (0-10); Hypochromasia Slight; Lymphocytes 5 % (20-55); Segmented Neutrophils 88 % (50-85); Total Cells Counted 100
[2018-06-14 05:26] LABS: Microcytosis 1+; Platelet Estimate Decreased
[2018-06-14] MEDS: LEVOTHYROXINE 50 MCG TABLET PO SCH (06:40)
[2018-06-14] MEDS: DILTIAZEM 30 MG TABLET PO SCH ×4 (09:03→22:17)
[2018-06-14] MEDS: ATORVASTATIN 40 MG TABLET PO SCH (09:03)
[2018-06-14] MEDS: ASPIRIN CHEW 81 MG TABLET PO SCH (09:03)
[2018-06-14] MEDS: DRONEDARONE 400 MG TABLET PO SCH ×2 (09:03→17:45)
[2018-06-14] MEDS: glipiZIDE 5 MG TABLET PER TUBE SCH ×2 (09:03→16:36)
[2018-06-14] MEDS: busPIRone 5 MG TABLET PO SCH (09:03)
[2018-06-14] MEDS: FUROSEMIDE 40 MG/4 ML VIAL IV SCH (09:04)
[2018-06-14] MEDS: PANTOPRAZOLE 40 MG VIAL IV SCH (09:05)
[2018-06-14] MEDS: methylPREDNISolone SOD SUC 40 MG/1 ML VIAL IV SCH (09:05)
[2018-06-14] MEDS: ZINC OXIDE PASTE 113 GM TUBE TOP SCH ×2 (09:08→22:18)
[2018-06-14] MEDS: DICLOFENAC 1% GEL 100 GM TUBE TOP SCH ×4 (09:08→22:18)
[2018-06-14] MEDS: NYSTATIN POWDER 15 GM BOTTLE TOP SCH ×2 (09:08→22:18)
[2018-06-14] MEDS ORDERED: PROPOFOL 1,000 MG/100 ML BOTTLE IV ONE (09:22)
[2018-06-14] MEDS: PROPOFOL 1,000 MG/100 ML BOTTLE IV SCH ×2 (09:32→18:40)
[2018-06-14] MEDS: MULTIVITAMIN LIQUID (CENTRUM) 60 ML BOTTLE PER TUBE SCH (10:49)
[2018-06-14] MEDS: cefTRIAXone 1,000 MG in SYRINGE 1 EACH IV SCH (14:29)
[2018-06-14] MEDS ORDERED: LORazepam 2 MG/1 ML VIAL IV PRN (17:20)
[2018-06-14 18:08] VITALS: BP 130/45
== END 2018-06-14 19:38 | disposition expired | DRG 870 ==
LOC: N.ED 15:14 → N.EDINP 20:03 → SUATTDRO 20:03 → N.EDINP 21:03 → N.2E 21:15 → N.ICU 05-14 11:20 → N.5E 05-18 15:45 → N.ICU 05-20 11:19
PROVIDERS: ADMIT Internal Medicine; ATTEND Family Medicine